=== PATIENT | female | born 1985 | race Caucasian/White ===

== ENCOUNTER 2025-05-16 16:57 | Outpatient (CLI) | payer BC, SELFPAY ==
--- OUTSIDE RECORDS SUMMARY | 2025-05-16 17:03 | XMS_ITS | Encounter Summary ---
Author Organization [facility] Address Counts include 234 beds at the [facility] [place] [address] Care Team Providers Care Division Merchandise Manager Name Role Phone None, Provider Primary Care Provider Unavaila ble Obi Ware MD Primary Care Provider [phone] Dionicio Thomas MD Primary Care Provider Encounter Details Date Type Department Care Team (Late st Contact Info) Description 05/05/2019 Abstract SFL CONVERSION [address] [place], [place] [id number] , Generic Conversion, Social History Tobacco Use Types Packs/Day Years Used Date Smoking Tobacco: Never Assessed Comments Unknown Sex and Gender Information Value Date Recorded Sex Assigned at Female 12/24/2024 9:40 AM DISTRIBUTION CENTER ASSOCIATE Legal Sex Female 5:52 PM DISTRIBUTION CENTER ASSOCIATE Gender Identity Not on file Sexual Orientation Not on file documented as of this encounter Plan of Treatment Not on file documented as of this encounter Visit Diagnoses Not on filedocumented in this encounter Care Teams Division Merchandise Manager Relationship Specialty Start Date End Date None, Provider, PCP - General 05/14/19 07/26/19 Obi Ware MD PCP - General FAMILY PRACTICE 07/27/19 05/21/20 Dionicio Thomas MD [address] [place] [address] PCP - General FAMILY PRACTICE 05/22/20 documented as of this encounter
--- OUTSIDE RECORDS SUMMARY | 2025-05-16 17:03 | XMS_ITS | Clinical Summary ---
Author Organization [facility] Address [address] [place] [address] Care Team Providers Care Service Writer Name Role Phone Dionicio Thomas MD Primary Care Provider [phone] Source Comments [facility] [facility],non-owned Affiliates and Associated Physician Practices is amultiple site organization consisting of ambulatory clinics and hospital sitesin [place], [place]. This disclosure is being madepursuant to the Care Everywhere program and may not contain all information available regarding this patient. Last updated 18.[facility] Allergies Active Allergy Reactions Criticality Noted Date Comments Augmentin 07/30/2016 Medications * Be aware that medications may not be up to date on this document. Alwaysverify current medications with the patient. gabapentin (NEURONTIN) 300 MG capsule Take 1 (one) capsule by mouth once daily as needed Active traMADol (ULTRAM) 50 MG tabletIndicatio ns:Moderate to Moderately Severe Pain,Osteoarthr itis Take 1 tablet by mouth 4 times daily Reasons: Moderate to Moderately Severe Pain, Joint Damage causing Pain and Loss of Function 30 tablet 9 Active Additional Information Patient not taking.Reason: Provider adjusted, Informant: Patient, Reported on 03/06/2025 cyclobenzaprine (FLEXERIL) 10 MG tablet Take 1 tablet by mouth 3 times daily 30 tablet 9 Active meloxicam (MOBIC) 15 MG tabletIndicatio ns:Osteoarthrit is Take 1 tablet by mouth once daily Reasons: Joint Damage causing Pain and Loss of Function 30 tablet 3 9 Active Additional Information Patient not taking.Reason: Not effective, Informant: Patient, Reported on 03/06/2025 methylPREDNISol one (MEDROL DOSEPAK) 4 MG tablet Take by mouth as directed 21 tablet 9 Active Additional Information Patient not taking.Reason: Provider adjusted, Informant: Patient, Reported on 03/06/2025 Slynd 4 MG TABS tablet Take 1 (one) tablet by mouth once daily Active Active Problems Problem Noted Date Diagnosed Date History of fusion of cervical spine 01/30/2019 Neuropathy, arm, left 01/30/2019 Encounters Date Type Department Care Team Description 03/06/2025 4:30 PM CDT - 03/06/2025 11:59 PM CDT Hospital Encounter [facility] [address] [place], [place] [id number] Earl Baker MD Discharge Disposition: Home or Self Care from Last 3 Months Social History Tobacco Use Types Packs/Day Years Used Date Smoking Tobacco: Former Cigarettes Q uit: 11/28/2017 Smokeless Tobacco: Never Tobacco Cessation:Ready to Q uit: No Alcohol Use Standard Drinks/Week Comments No 0 (1 standard drink = 0.6 oz pur e alcohol) Comments No Sex and Gender Information Value Date Recorded Sex Assigned at Not on file Legal Sex Female 4:48 PM CDT Gender Identity Not on file Sexual Orientation Not on file Last Filed Vital Signs Vital Sign Reading Time Taken Comments Blood Pressure 121/81 03/06/2025 6:04 PM CDT Pulse 78 03/06/2025 6:04 PM CDT Temperature 36.7 C (98 F) 03/06/2025 4:48 PM CDT Respiratory Rate 18 03/06/2025 6:04 PM CDT Oxygen Saturation 100% 03/06/2025 4:48 PM CDT Inhaled Oxygen Concentration - - Weight 63.5 kg (140 lb) 03/06/2025 4:48 PM CDT Height 149.9 cm (4' 11) 03/06/2025 4:48 PM CDT Body Mass Index 28.28 03/06/2025 4:48 PM CDT Plan of Treatment Health Maintenance Due Date Last Done Comments LIPID TESTING 1983 HIV SCREENING 1998 HEPATITIS C SCREENING 07/05/2001 DTAP/TDAP/TD VACCINES (1 - Tdap) 2002 HEPATITIS B VACCINE (1 of 3 - 19+ 3-dose series) 2002 COVID-19 VACCINE ( season) 2024 06/18/2022, 03/05/2021 DEPRESSION SCREENING 11/28/2024 INFLUENZA VACCINE (Season Ended) 2025 PAP SMEAR 10/17/2026 10/17/2023, 10/17/2023 MAMMOGRAM 10/26/2026 10/26/2024, 09/29, 10/17/2023, Additional history exists SCREENING FOR DIABETES 11/24/2027 , 11/24/2024, 04/22/2024, Additional history exists ZOSTER VACCINE (1 of 2) 2033 HIB VACCINE Aged Out No longer eligi ble based on patient's age to complete this topic HPV VACCINE Aged Out No longer eligi ble based on patient's age to complete this topic MENINGOCOCCAL (Group B) VACCINE SHARED DECISION-MAKING Aged Out No longer eligible based on patient's age to complete this topic MENINGOCOCCAL GROUPS A/C/Y/W VACCINE Aged Out No longer eligible based on patient's age to complete this topic PNEUMOCOCCAL VACCINE Aged Out No long er eligible based on patient's age to complete this topic Goals Goal Patient Goal Type Associated Problems Recent Progress Patient-Stated? Author Yearly PCP visit Lifestyle No White, Danyell A Have labs drawn Lifestyle No White, Danyell A Take recommended medication(s) Lifestyle No White, Danyell A Use safety retraint in car Lifestyle No White, Danyell A Complete Health Maintenance Screenings Lifestyle No White, Danyell A Procedures Procedure Name Priority Date/Time Associated Diagnosis Comments PAIN MANAGEMENT PROCEDURE TIME Routine 03/06/2025 5:58 PM CDT Cervical spondylosis without myelopathy COMPREHENSIVE METABOLIC PANEL STAT 08/20/2016 1:34 PM CDT from Last 3 Months or Most Recently Relevant to Health Maintenance Results * Pain Management Procedure Time (03/06/2025 5:58 PM CDT) Anatomical Region Laterality Modality X-Ray Angiograph y Narrative 03/06/2025 6:00 PM CDT Earl Baker MD 03/06/2025 6:00 PM Diagnostic bilateral C3, C4, C5 medial branch blocks. The patient was identified in the holding area and the operative permit was explained and signed. I have discussed with the patient the risks, benefits, side effects and complications of fluoroscopically guided cervical medial branch blocks. I have answered the patient's questions regarding the procedure and have given the patient the opportunity to refuse the procedure. I also have discussed alternative methods of treatment. The patient stated understanding of the procedure and wished to proceed with a fluoroscopically guided cervical medial branch blocks. The patient was taken to the fluoroscopic suite and placed on a C-arm table in the prone position with the appropriate monitors placed. A nurse was in attendance for the duration of the procedure to carefully monitor the patient. Please refer to the nursing record for vital sign documentation and for any doses of sedatives and medications. I was present and gave the order for any medications given to the patient. The cervical area was then prepped and draped in the usual sterile fashion. AP fluoroscopy was utilized to identify the lateral border of the facet pillar of C3 bilaterally. The skin and subcutaneous tissues overlying the target were anesthetized with 1 cc of 1 % Lidocaine via a 27 gauge needle. A 25 gauge 3.5 spinal needle was advanced toward the target midway between the superior and inferior articular processes of C4. Once seated in the tissues, lateral fluoroscopy was utilized in order to advance the needle to the middle of the facet pillar at the target level. Once satisfactory placement of the first needle was obtained, the procedure was repeated at the C4 and C5. Appropriate lateral positioning was confirmed with AP fluoroscopy prior to injection at all levels. After negative aspiration of blood or CSF, 0.5 cc of 0.25% Bupivacaine was injected at each level. All needles were removed intact. The patient tolerated the procedure well and there were no complications. Meaningful verbal contact was maintained with the patient throughout the procedure. The patient was taken to the recovery area. The patient remained in stable condition with no apparent complications. Post procedure instructions were given to the patient and a follow up appointment was confirmed. The patient was also discharged with information on how to reach the clinic or employment instructional associate physician at anytime for questions or complaints., Estimated blood loss during procedure 0 ml DOS 03/06/25 Earl Baker MD DIAGNOSTIC IMAGING ORDERA BLES Final Result * (ABNORMAL) COMPREHENSIVE METABOLIC PANEL (08/20/2016 1:34 PM T) [facility] Glucose 104 74 - 106 mg/dL 08/20/2016 2:04 PM [facility] Sodium 137 136 - 145 mmol/L 08/20/2016 2:04 PM [facility] Potassium 3.4(L) 3.5 - 5.1 mmol/L 08/20/2016 2:04 PM [facility] Chloride 105 98 - 107 mmol/L 08/20/2016 2:04 PM [facility] CO2 25 22 - 31 mmol/L 08/20/2016 2:04 PM [facility] Calcium 8.5 8.5 - 10.1 mg/dL 08/20/2016 2:04 PM [facility] Anion Gap 7 5 - 20 mmol/L 08/20/2016 2:04 PM [facility] BUN 8 7 - 21 mg/dL 08/20/2016 2:04 PM [facility] Creatinine 0.84 0.50 - 1.30 mg/dL 08/20/2016 2:04 PM [facility] Alkaline Phosphatase 63 38 - 126 U/L 08/20/2016 2:04 PM [facility] ALT 17 13 - 61 U/L 08/20/2016 2:04 PM [facility] AST 12 5 - 40 U/L 08/20/2016 2:04 PM [facility] Protein Total 7.8 6.4 - 8.2 gm/dL 08/20/2016 2:04 PM [facility] Albumin 4.1 3.4 - 5.0 gm/dL 08/20/2016 2:04 PM [facility] Bilirubin Total 0.5 0.2 - 1.0 mg/dL 08/20/2016 2:04 PM [facility] eGFR by MDRD >60 >60 mL/min/1.7 3m2 08/20/2016 2:04 PM [facility] eGFR by MDRD >60 >60 mL/min/1.7 3m2 08/20/2016 2:04 PM [facility] Blood BLOOD SPECIMEN / Unknown 08/20/2016 1:34 PM CDT 08/20/2016 1:38 PM CDT Bee Alexandre ABRASIVE BAND WINDER-INSURANCE ACCOUNT REPRESENTATIVE LAB - CHEMISTRY ORDERABLES Final Result [facility] [address] [place] [address] from Last 3 Months or Most Recently Relevant to Health Maintenance Insurance [employer] Care Teams Service Writer Relationship Specialty Start Date End Date Dionicio Thomas MD [address] [place] [address] PCP - General Family Medicine 07/22/21
--- OUTSIDE RECORDS SUMMARY | 2025-05-16 17:03 | XMS_ITS | Encounter Summary ---
Author Organization [facility] Address [address] [place] [address] Care Team Providers Care Clothes Drier Assembler Name Role Phone Dionicio Thomas MD Primary Care Provider Encounter Details Date Type Department Care Team (Late st Contact Info) Description 02/20/2025 [employer] Message Enc [facility] [address] [address] [address] PA [address] [place] [address] Visit Follow Up Social History Tobacco Use Types Packs/Day Years Used Date Smoking Tobacco: Former Cigarettes Q uit: 05/22/2017 Smokeless Tobacco: Never Alcohol Use Standard Drinks/Week Comments No 0 (1 standard drink = 0.6 oz pur e alcohol) AUDIT-C Answer Date Recorded Frequency of Alcohol Consumption Never 05/14/2019 Average Number of Drinks Not on file 019 Frequency of Binge Drinking Not on file 04/28 Comments No Sex and Gender Information Value Date Recorded Sex Assigned at Female 12/24/2024 9:40 AM DAIRY POWDER MIXER OPERATOR Legal Sex Female 5:52 PM DAIRY POWDER MIXER OPERATOR Gender Identity Not on file Sexual Orientation Not on file documented as of this encounter Plan of Treatment Not on file documented as of this encounter Visit Diagnoses Not on filedocumented in this encounter Care Teams Clothes Drier Assembler Relationship Specialty Start Date End Date Dionicio Thomas MD [address] [place] [id number] PCP - General FAMILY PRACTICE 05/22/20 documented as of this encounter
--- OUTSIDE RECORDS SUMMARY | 2025-05-16 17:03 | XMS_ITS | Clinical Summary ---
Author Organization [facility] Address [address] [place] [address] Phone Care Team Providers Care Sifting Operator Name Role Phone Dionicio Thomas MD Primary Care Provider Anton Emmanuel MD Unavailable Allergies Active Allergy Reactions Criticality Noted Date Comments Amoxicillin-Pot Clavulanate Hives 11/24/20 15 Medications naproxen (NAPROSYN) 500 MG Tablet Take 1 Tab by mouth 2 times daily as needed for Pain. 20 Tab 07/06/2017 Active tamsulosin (FLOMAX) 0.4 MG Capsule Take 1 Capsule by mouth daily. 04/26/2024 Active gabapentin (NEURONTIN) 300 MG Capsule TAKE 1 CAPSULE BY MOUTH EVERY DAY NEEDED FOR NERVE PAIN Active cyclobenzaprine (FLEXERIL) 10 MG Tablet 01/30/2019 Active oxyCODONE-aceta minophen (PERCOCET) 5-325 MG Tablet TAKE 1 TABLET BY MOUTH EVERY 4 HOURS FOR 3 DAYS NEEDED FOR PAIN 04/15/2024 Active Slynd 4 MG Tablet Take 1 Tablet by mouth daily. 04/26/2024 Active Social History Tobacco Use Types Packs/Day Years Used Date Smoking Tobacco: Every Day Cigarettes Alcohol Use Standard Drinks/Week Comments No 0 (1 standard drink = 0.6 oz pur e alcohol) Comments No Sex and Gender Information Value Date Recorded Sex Assigned at Not on file Legal Sex Female 10:13 PM CDT Gender Identity Not on file Sexual Orientation Not on file Last Filed Vital Signs Vital Sign Reading Time Taken Comments Blood Pressure 111/76 05/16/2024 8:01 AM CDT Pulse 85 05/16/2024 8:01 AM CDT Temperature 36.7 C (98 F) 04/22/2024 12:58 PM CDT Respiratory Rate 20 05/16/2024 8:01 AM CDT Oxygen Saturation 97% 05/16/2024 8:01 AM CDT Inhaled Oxygen Concentration - - Weight 55.3 kg (122 lb) 05/16/2024 8:01 AM CDT Height 148.6 cm (4' 10.5) 05/16/2024 8:01 AM CD T Body Mass Index 25.06 05/16/2024 8:01 AM CDT Plan of Treatment Health Maintenance Due Date Last Done Comments Hepatitis C Virus (HCV) Screening 1983 Human Papillomavirus (HPV) Immunization (1 - 3-dose series) 1998 Hepatitis B Immunization (1 of 3 - 19+ 3-dose series) 2002 Pneumococcal Immunization Combined (1 of 2 - PCV) 2002 HPV/Cotest 2013 SARS-COV-2 Immunization ( season) 2024 06/18/2022, 03/05/2021 Mammogram 10/17/2024 10/17/2023, 10/17/2023 Influenza Immunization (Seas on Ended) 2025 Cervical Cancer Screening (CCS) 10/17/2026 Pap Smear 10/17/2026 10/17/2023 Respiratory Syncytial Virus (RSV) Immunization (Adult) (1 - 1-dose 75+ series) 2058 DTaP/Tdap/Td Immunization Discontinued 03/26/2017 TdaP Immunization Completed 03/26/2017 Discussion re Starting/Frequency of Mammograms Completed 10/17/2023 Meningococcal Immunization (ACWY) Aged Out No longer eligible based on patient's age to complete this topic Rotavirus Immunization Aged Out No lo nger eligible based on patient's age to complete this topic Insurance [facility] Care Teams Sifting Operator Relationship Specialty Start Date End Date Dionicio Thomas MD [address] [place] [address] PCP - General Family Medicine 04/22/24 Anton Emmanuel MD [address] [phone] Consulting Physician Urology 05/16/24
--- OUTSIDE RECORDS SUMMARY | 2025-05-16 17:03 | XMS_ITS | Clinical Summary ---
Author Organization [facility] Address [address] [place] [address] Care Team Providers Care Gift Consultant Name Role Phone Unavailable Primary Care Provider Unavailabl e Social History Tobacco Use Types Packs/Day Years Used Date Smoking Tobacco: Never Assessed Comments Unknown Sex and Gender Information Value Date Recorded Sex Assigned at Not on file Legal Sex Female 11:35 AM TRAUMA DIRECTOR Gender Identity Not on file Sexual Orientation Not on file Plan of Treatment Upcoming Encounters Date Type Department Care Team (Late st Contact Info) Description 08/07/2025 1:15 PM CDT Appointment [facility] [address] [place] [address] Marcus Bullard MD [address] [facility] [address] [place] [address] Health Maintenance Due Date Last Done Comments DTAP/TDAP/TD VACCINES (1 - Tdap) 2002 HEPATITIS B VACCINES (1 of 3 - 19+ 3-dose series) 2002 HPV/Cotest (21-29) 2004 CERVICAL CANCER SCREENING 2013 HPV/Cotest (30-65) 2013 PAP SMEAR 2013 BREAST CANCER SCREENING 2023 INFLUENZA VACCINE (#1) 2024 HPV VACCINES Aged Out No longer eligi ble based on patient's age to complete this topic Insurance [employer] [facility]
--- OUTSIDE RECORDS SUMMARY | 2025-05-16 17:03 | XMS_ITS | Encounter Summary ---
Author Organization [facility] Address [address] [place] [address] Care Team Providers Care Organic Section Technical Lead Name Role Phone Dioincio Thomas MD Primary Care Provider Encounter Details Date Type Department Care Team (Late st Contact Info) Description 10/03/2024 [employer] Message Enc [facility] [address] [address] [address] PA [address] [place] [address] Visit Follow Up Social History Tobacco [...] Sex Assigned at Female 12/24/2024 9:40 AM DIRECTOR OF PHILANTHROPY Legal Sex Female 5:52 PM DIRECTOR OF PHILANTHROPY Gender Identity Not on file Sexual Orientation Not on file documented as of this encounter Plan of Treatment Not on file documented as of this encounter Visit Diagnoses Not on filedocumented in this encounter Care Teams Organic Section Technical Lead Relationship Specialty Start Date End Date Dionicio Thomas MD [address] [facility] [place] [phone] PCP - General FAMILY PRACTICE 05/22/20 documented as of this encounter
--- OUTSIDE RECORDS SUMMARY | 2025-05-16 17:04 | XMS_ITS | Data Portability ---
Author Organization [facility] [place] Address [address] [place] [place] [place] [address] Care Team Providers Care Psychiatric Clinical Nurse Specialist Name Role Phone SAMM ABEL Primary Care Provider Assessment Encounter Date Assessment Date Assessment LastModified by Organization Details LastModified Time 11/12/2024 11/12/2024 Annual gynecological exam performed. Patient will come back in a year unless there are new symptoms. [email or web address] Not available 11/12/2024 09:46:13 Plan of Treatment Reminders Order Date Submit Date Provider Last Modified By Organization Details Last Modified Time Details Appointments Robotic TLH 2024 07:30A Anu CUMMINS MD Not available Not available Not available SURG POST OP 2024 09:00A Anu CUMMINS MD Not available Not available Not available [facility] 2024 05:30P M SARAH CAPUTO NP Not available Not available Not available Lab test, urine 2024 025 [email or web address] [place] [facility] [address], [place], [address], 02/20/2025 10:38:48 Referral None recorded. Procedures None recorded. Surgeries robotic assisted hysterect maura w/bilater al salpingo- oophorect maura (SURG) 2024 025 [id number] [facility], [facility] [address], [place], [address], 05/03/2025 13:28:09 Imaging US, transvagi nal 2024 025 [email or web address] [place], [address], [place], [address], 02/22/2025 21:06:13 US, pelvis, complete 2024 025 [email or web address] [place], [place], [address], 03/22/2025 15:02:03 Medication Orders Slynd 4 mg (28) tablet 2023 024 [id number], [address], [place], [id number], 11/12/2024 11:17:40 Patient TargetsNo targets recorded. Patient InstructionsNo instructions recorded. Reason for Referral None Reported. Results Created Date Observation Date Name Description Value Unit Range Abnormal Flag Note LastModifiedBy Organization Detail LastModifiedTime 02/21/2002/20/2025 pregn helena test, urine HCG negati ve Not Available [place] [address], [place], [address], 02/20/2025 10:38:39 10/26/20 24 10/26/2024 MAMMO , scree lee, bilat eral No observ ation record ed. [facility] (Radiology) [address], [place], [address], 10/29/2024 10:24:47 02/21/20 25 02/13/2025 imagi ng/di agnos tic resul t No observ ation record ed. [email or web address] Not Available 2024 12:08:12 02/22/20 25 02/21/2025 US, trans vagin al No observ ation record ed. carol [place] [address], [place], [address], 02/21/2025 18:13:00 02/22/20 25 02/21/2025 US, trans vagin al No observ ation record ed. [email or web address] [address], [place], [address], 03/11/2025 13:54:10 Result Notes None recorded. Problems Name Problem SNOMED Code Status Onset Date Resolution Date Notes Provider Name and Address Organization Details Recorded Time Right lower quadrant pain 474852963 Completed 201605/13/2022 RLQ pain;Lakhwinder rded Elsewhere : No Locati on: [facility] So urce: EHR Chron ic: N Practic e ID: [id number] Bill able Time: 03:00:00 PM Elly Hearn [facility] 2 17:18:24 Superfic ial pain on intercou rse [id number] Completed 201605/13/2022 Superfici al (introita l) dyspareun ia;Record ed Elsewhere : No Locati on: [facility] So urce: EHR Chron ic: N Practic e ID: [id number] Bill able Time: 03:00:00 PM Elly Hearn [facility] 2 17:18:24 Pelvic and perineal pain [id number] Completed 201605/13/2022 Pelvic and perineal pain;Lakhwinder rded Elsewhere : No Locati on: [facility] So urce: EHR Chron ic: N Practic e ID: [id number] Bill able Time: 02:00:00 PM Elly Hearn [facility] 2 17:18:24 Finding of defecati on Completed 201605/13/2022 Constipat ion;Recor ded Elsewhere : No Locati on: [facility] So urce: EHR Chron ic: N Practic e ID: [id number] Bill able Time: 03:00:00 PM Elly Hearn [facility] 2 17:18:24 Sexual function painful Completed 201605/13/2022 Unspecifi ed dyspareun ia;Practi ce ID: [email or web address] Elly Hearn [facility], [facility] 2 17:18:24 Pain in female genitali a Completed 201605/13/2022 Dysmenorr hea, unspecifi ed;Practi ce ID: [email or web address] Elly Hearn [facility] 2 17:18:24 Problem Notes None recorded. Procedures Surgical History Date Name Laterality Status Provider Name and Address Organization Details Recorded Time 10/17/20 23 Date of Last Pap Smear completed [facility] 10/17/2023 15:01:54 06/01/20 17 Laparoscopy completed [facility] 07/18/2023 12:20:15 11/28/19 14 Orthopedic Surgery completed [facility] 07/18/2023 12:20:49 11/28/19 14 operation on cervix completed [facility] 07/18/2023 12:11:54 11/28/19 07 Breast Biopsy completed [facility] 07/18/2023 12:11:15 11/28/19 05 extraction of wisdom tooth completed [facility] 07/18/2023 12:11:29 Imaging Results None recorded. Procedure Notes None recorded. Medical Equipment None Reported. Allergies Allergen ID Allergen Name Allergen Category Reaction Reaction Severity Criticality Documentation Date Start Date Code Code System Note Provider Name and Address Organization Details Recorded Time Product containin g penicilli n (product) medicatio n Not available Not available Not available 05/14/2022 92015 8001 SNOMED Elly Hearn [facility] 2 10:21:09 Augmentin medicatio n Not available Not available Not available 05/14/2022 07586 2 RxNorm Elly Hearn [facility] 2 10:21:55 Medications Name Sig Start Date Stop Date Status Note LastModified by Organization Details LastModified Time celecoxib 200 mg capsule TAKE 2 CAPSULES FOR INITIAL LOADING DOSE, THEN 1 TWICE DAILY FOR SEVERE DYSMENOR CLARI PAIN. TAKE WITH FOOD, MAX OF 7 DAYS 06/15 completed Not Available Not Available Not Available cyclobenz aprine 10 mg tablet active Not Available Not Available No t Available clindamyc in HCl 300 mg capsule TAKE 1 CAPSULE BY MOUTH EVERY 6 HOURS 02/20 completed Not Available Not Available Not Available trazodone 50 mg tablet TAKE 1/2 TO 1 TABLET BY MOUTH AT BEDTIME active Not Available Not Available No t Available azithromy gordon 250 mg tablet TAKE 2 TABLETS BY MOUTH FOR 1 DAY THEN TAKE 1 TABLET BY MOUTH DAILY FOR 4 DAYS 07/18 completed Not Available Not Available Not Available ibuprofen 800 mg tablet TAKE 1 TABLET BY MOUTH EVERY 8 HOURS NEEDED FOR TOOTH PAIN 10/17 completed Not Available Not Available Not Available hydrocodo ne 5 mg-acetam inophen 325 mg tablet TAKE 1 TABLET BY MOUTH EVERY 6 HOURS NEEDED FOR PAIN 07/18 completed Not Available Not Available Not Available meloxicam 15 mg tablet 02/20 completed Not Available Not Available Not Available acetamino phen 300 mg-codein e 30 mg tablet TAKE 1 TABLET BY MOUTH EVERY 4 HOUR NEEDED FOR PAIN 10/17 completed Not Available Not Available Not Available sulfameth oxazole 800 mg-trimet hoprim 160 mg tablet TAKE 1 TABLET BY MOUTH TWICE DAILY 02/20 completed Not Available Not Available Not Available doxycycli ne monohydra te 100 mg tablet TAKE 1 TABLET BY MOUTH TWICE DAILY 11/12 completed Not Available Not Available Not Available tramadol 50 mg tablet TAKE 1 TABLET BY MOUTH EVERY 4 TO 6 HOURS NEEDED FOR DENTAL PAIN 02/20 completed Not Available Not Available Not Available ketorolac 10 mg tablet 11/12 completed Not Available Not Available Not Available meloxicam 7.5 mg tablet TAKE 1 TABLET BY MOUTH TWICE DAILY FOR 7 DAYS NEEDED 07/18 completed Not Available Not Available Not Available oxycodone -acetamin ophen 5 mg-325 mg tablet TAKE 1 TABLET BY MOUTH EVERY 4 HOURS FOR 3 DAYS NEEDED FOR PAIN 11/12 completed Not Available Not Available Not Available tamsulosi n 0.4 mg capsule TAKE 1 CAPSULE BY MOUTH DAILY 11/12 completed Not Available Not Available Not Available meclizine 25 mg tablet TAKE 1 TABLET BY MOUTH THREE TIMES DAILY NEEDED FOR DIZZINES S active Not Available Not Available No t Available doxycycli ne monohydra te 100 mg capsule TAKE 1 CAPSULE BY MOUTH TWICE DAILY 11/12 completed Not Available Not Available Not Available cephalexi n 500 mg capsule TAKE 1 CAPSULE BY MOUTH THREE TIMES DAILY UNTIL GONE 05/14 completed Not Available Not Available Not Available naproxen sodium 550 mg tablet May take 1 tablet BID x 7 days max WITH FOOD during menses only to avoid stomach upset/GI issues. 06/15 completed Not Available Not Available Not Available gabapenti n 300 mg capsule TAKE 1 CAPSULE BY MOUTH AT BEDTIME NEEDED FOR PAIN active Not Available Not Available No t Available mupirocin 2 % topical ointment APPLY TOPICALL Y TO THE AFFECTED AREA 2 TO 3 TIMES DAILY 02/20 completed Not Available Not Available Not Available diclofena c sodium 50 mg tablet,de layed release TAKE 1 TABLET BY MOUTH THREE TIMES DAILY NEEDED FOR PAIN 11/12 completed Not Available Not Available Not Available furosemid e 20 mg tablet TAKE 1/2 TO 1 TABLET BY MOUTH DAILY NEEDED FOR FOOT SWELLING 10/17 completed Not Available Not Available Not Available gabapenti n 100 mg capsule take 3 capsule by oral route 3 times every day 10/17 completed Prescrib ed Elsewher e: Yes Loca tion: [facility] odify By: [email or web address] E ncounter DateTime : 03/28/20 17 02:00:00 PM Not Available Not Available Not Available cefuroxim e axetil 500 mg tablet TAKE 1 TABLET BY MOUTH TWICE DAILY 02/20 completed Not Available Not Available Not Available methylpre dnisolone 4 mg tablets in a dose pack FOLLOW PACKAGE DIRECTIO NS 02/20 completed Not Available Not Available Not Available albuterol sulfate HFA 90 mcg/actua tion aerosol inhaler INHALE 1 PUFF BY MOUTH EVERY 4 TO 6 HOURS FOR 7 DAYS NEEDED FOR SHORTNES S OF BREATH OR WHEEZING active Not Available Not Available No t Available ondansetr on 4 mg disintegr ating tablet 02/20 completed Not Available Not Available Not Available Mononessa (28) 0.25 mg-35 mcg tablet take 1 tablet by oral route every day 05/14 completed Prescrib jeanne Daniels e: Yes Loca tion: [facility] Anu odkristen By: adam presley DateTime : 03/28/20 02:00:00 PM Not Available Not Available Not Available Slynd 4 mg (28) tablet TAKE 1 TABLET BY MOUTH EVERY DAY active Not Available Not Available No t Available Vitals Date Recorded Body height Body mass index (BMI) Body weight Systolic blood pressure Diastolic blood pressure Provider Name and Address Organization Details Last Updated DateTime 02/20/2025 148.59 cm 29.4 kg/m2 25095.71 g 120 mm[Hg] 83 mm[Hg] [facility] 5 09:57:07 Date Recorded Body height Body mass index (BMI) Body weight Systolic blood pressure Diastolic blood pressure Provider Name and Address Organization Details Last Updated DateTime 03/09/2025 148.59 cm 29.5 kg/m2 75906.58 g 108 mm[Hg] 75 mm[Hg] [facility] 5 09:26:13 Date Recorded Body height Body mass index (BMI) Body weight Systolic blood pressure Diastolic blood pressure Provider Name and Address Organization Details Last Updated DateTime 05/08/2025 148.59 cm 28.8 kg/m2 96857.93 g 113 mm[Hg] 77 mm[Hg] Vivi Lang [facility] 5 18:06:50 Date Recorded Body height Body mass index (BMI) Body weight Systolic blood pressure Diastolic blood pressure Provider Name and Address Organization Details Last Updated DateTime 11/12/2024 148.59 cm 30.9 kg/m2 31560.29 g 132 mm[Hg] 84 mm[Hg] [facility] 4 11:08:54 Social History Question Answer Notes LastModified by Organizat ion Details LastModified Time Tobacco Smoking Status Never Smoker Preeti pan, [facility] 07/18/2023 12:11:07 Do You Have An Advance Directive? No Information n ot available 05/14/2022 Are You Blind Or Do You Have Difficulty Seeing? No Information n ot available 05/14/2022 What Is Your Level Of Caffeine Consumption? Moderate Information not available 05/14/2022 How Much Tobacco Do You Chew? None Information not available 05/14/2022 In The 14 Days Before Symptom Onset, Have You Had Close Contact With A Laboratory-confirm ed COVID-19 While That Case Was Ill? No Information n ot available 05/14/2022 In The 14 Days Before Symptom Onset, Have You Had Close Contact With A Person Who Is Under Investigation For COVID-19 While That Person Was Ill? No Information not available 05/14/2022 Have You Been To An Area Known To Be High Risk For COVID-19? No Information not available 05/14/2022 Are You Deaf Or Do You Have Serious Difficulty Hearing? No Information not available 05/14/2022 What Type Of Diet Are You Following? REGULAR Information n ot available 05/14/2022 What Is The Highest Grade Or Level Of School You Have Completed Or The Highest Degree You Have Received? [id number] Information not available 05/14/2022 Are There Any Guns Present In Your Home? No Information not available 05/14/2022 Have You Ever Been Counseled For Unhealthy Alcohol Use? No [email or web address] Information not available 07/18/2023 Do You Use Protection During Sex? Always Information not available 05/14/2022 Do You Use Your Seat Belt Or Car Seat Routinely? Yes Information not available 05/14/2022 Do You Have Smoke And Carbon Monoxide Detectors In Your Home? Yes Information not available 05/14/2022 How Much Tobacco Do You Smoke? No Information not available 05/14/2022 Do You Use Sunscreen Routinely? Yes Information not available 05/14/2022 Have You Used IV Drugs? No Information not available 05/14/2022 Do You Have Difficulty Walking Or Climbing Stairs? No Information not available 07/18/2023 Sex: Unknown Functional Status Question Answer Note LastModified by Organizat ion Details LastModified Time Do you use any illicit or recreational drugs? No Information not available 05/14/2022 Do you or have you ever used any other forms of tobacco or nicotine? No [email or web address] Information not available 07/18/2023 What is your level of alcohol consumption? Occasional [email or web address] Information not available 07/18/2023 Are you able to walk? YESWOREST Information not available 05/14/2022 Are you able to care for yourself? 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 No [email or web address] Information not available 07/18/2023 What is your exercise level? Occasional Information not available 05/14/2022 Mental Status Question Answer Note LastModified by Organization D etails LastModified Time Do you feel stressed (tense, restless, nervous, or anxious, or unable to sleep at night)? [id number] Information not available 05/14/2022 Family History Relationship Description Onset Age of this Age Resolved Age Notes LastModified by Organization Details LastModified Time Maternal Grandmother Malignant neoplasm of lung Not available 2021 10:21:15 Maternal Grandmother Malignant tumor of breast Not available 2021 10:21:15 Mother Malignant neoplasm of lung Not available 2021 10:21:15 Mother Malignant tumor of cervix Not available 2021 10:21:15 Mother Malignant neoplasm of ovary 35 [email or web address] Not available 2024 10:06:37 Mother Malignant neoplasm of uterus 35 [email or web address] Not available 2024 10:06:33 Paternal Grandmother Malignant tumor of cervix Not available 2021 10:21:15 Medical History Condition Response Allergies (Food, seasonal, environmental ) Y Other Y Drug/Latex Allergies/Reactions N Blood Transfusion N Breast Cancer N Dermatologic Disorders N Lung Disease N Defects or Inherited Disease N Breast Problem Y Gestational Diabetes N Hematologic disorders N Anesthesia Complications N History of STI N Deep Vein Thrombosis N Polycystic ovary syndrome N Anxiety Disorder N Autoimmune disease N Arthritis Y Polyps N Infertility N Acid Reflux (GERD) N History of abnormal pap N Cancer N Varicosities N Stroke N Neurologic/Epilepsy Y Endometriosis N High Cholesterol N Fibromyalgia Y Headaches N Kidney Disease N Heart Problems N Thyroid Problems N Kidney or Bladder Problems N GI Problems N Eating Disorder N Anemia N Art (IVF or FET) N Psychiatric Illness N Ovarian Cancer N Diabetes N Pulmonary (TB, Asthma) N Hepatitis/Liver Disease N No Past Medical History N Eczema N Urinary Tract Infection N Abuse/Domestic Violence N Asthma Y Trauma/Violence N Depression/ depression N Heart Disease N Pre-Eclampsia N Hypertension N Osteoporosis N Thrombophilias N Gynecological History Statement/Question Response Flow Light Date of Last Mammogram Date of LMP 05/08/2025 N On BCP's at Conception? Y STIs/STDs N Was last menstrual period normal N HPV Vaccine N Duration of Flow (days) 2 Current Control Method BCPs Age at First Child 15 Date of control 06/28/2022 Are cycles usually normal N Frequency of Cycle (Q days) 26 Sexually Active? Y Menses Monthly N Age of first menstrual cycle 14 Date of Last Pap Smear 10/17/2023 Sexual Problems? N LMP Approximate Desired Control Method Hysterectom y N Obstetrics History GPAL:G 3 P 2 0 1 2 Type Value Full Term 2 Spontaneous 1 Living 2 Total 3 Past Encounters Encounter ID Performer Location Encounter Start Date Encounter Closed Date Diagnosis/Indication Diagnosis SNOMED-CT Code Diagnosis ICD10 Code Diagnosis Note [id number] Margaret Collazo [facility] [address] [address] 05/14/2022 09:52:33 05/14/2022 11:52:33 Pain in pelvis 31575197 R10.2 Today we agreed to update TVUS and f/u to discuss.Co nsider period regulation which supports anovulatio n to help defer opportunit ies for ovarian cysts to occur.Has failed Depo/BCP trials in the past mainly felt it effected her mood.Trial of Celebrex for menstrual pain trial. May couple with Tylenol as well.Discu ssed premedicat ing prior to onset of her cycle as well.Swabs sent Patient is to contact office or go to nearest ED/Urgent care if fever >/= 100.1, pain, excessive bleeding, unusual drainage or swelling in area of concern; or experienci ng worsening sx's or new onset of concerning sx's. Understand ing verbalized . All questions answered to patient satisfacti on. Time spent in visit is a total of 30 mins with at least 50% of visit consisting of counseling and review of plan of care. [id number] Tani Cummins MD [place] [address],[place] [address] 06/02/2022 17:56:56 06/02/2022 18:41:18 Pain in pelvis 11930371 R10.2 [id number] [facility] [address],[place] [address] 06/15/2022 16:15:17 06/15/2022 16:59:40 Cyst of ovary 17864143 N83.209 US reviewedOv yair cyst approx 2cmShe feels like this has ruptured.H ad more dysmenorrh ea with this last menstrual cycle than she normally does; even though most cycles still with significan t dysmenorrh ea.We talked about using BC for ovulatory suppressio n; she opts to pursue SLYND which will also help more with Dysmenorrh ea with her cycles.She is sensitive to BC but is willing to try this POP.She is overall feeling better & sx's are resolving pain is 3 out of 10 now & this is only very randomly.A ble to function ADL's SLYND samples givenRTO x 2.5mos med check Time spent in visit is a total of 15 mins with at least 50% of visit consisting of counseling and review of plan of care. [id number] JEN Rich [place] [address],[place] [address] 07/18/2023 11:50:38 07/18/2023 12:43:25 Gynecologic examination 61776936 Z01.419 Suggested Calcium with Vitamin D 1200-1500m g daily. Patient advised to get an annual flu shot in the fall and she could obtain at [facility] or [facility] take care clinic. Also to obtain TDap vaccinatio n if you have not had one in the last 10 years. Recommend yearly mammograms . Encouraged monthly self breast exams. Encourage safe sexual practices, to use condoms and limit partners if not already in a monogamous relationsh ip. Engage in daily exercise of low impact aerobic exercise 45-60 minutes 4-5 times weekly. Avoid tobacco and illicit drugs as well as using moderation with alcohol intake less than 1-2 8 oz beverages daily. This lifestyle behavior pattern will lead to less health conditions and longer life span. If BMI greater than 25 weight watchers or dietary consult advised. All questions have been answered. Patient appears to understand informatio n, but if you have any questions please call or respond to this email. [facility] - torrie with this methodR/B/ A reviewedre fills sent x 12 monthshx of abnormal pap 20+ years ago - all normals sincepap updated todaySTI testing declinedUT D with PCP for routine labs - has appointmen t with PCP todayleft axillary lump noted. Due for primary mammogram. Diagnostic mammogram + axillary u/s order given to patient, encouraged to schedule - precaution s reviewed (notify the office with s/sx's of infection) mother with ovarian CA diagnosed at 34, maternal grandmothe r with BC (unsure age of diagnosis) . Genetic testing discussed, hangout given. Axillary lymphadenopathy 780765054 R59.0 Contracept ion care management 894740925 Z30.9 [id number] JEN Rich [place] [address] [address] 10/17/2023 14:46:01 10/17/2023 15:09:34 Screening for malignant neoplasm of cervix 269699184 Z12.4 repeat pap collected No charge visit [id number] Tani Cummins MD [place] [address] [address] 11/12/2024 11:00:27 11/12/2024 11:24:45 Gynecologic examination 06471355 Z01.419 Annual gynecologi stefano exam performed. Patient will come back in a year unless there are new symptoms. Suggest Calcium with Vitamin D if not eating in diet. Patient advised to get annual flu shot. Recommend yearly physicals and perform monthly breast exams. Genetic testing is available for patients with family history of cancer. Engage in safe sexual practices, use condoms. Encouraged to have daily exercise. Avoid tobacco and illicit drugs, moderation of alcohol. If BMI greater than 25 dietary consult advised. If you have any questions please call or email. mammogram- UTD (09/2024 - WNL per pt) colon cancer screening - n/a DEXA scan- n/a Pap smear- UTD (2022 - WNL), will repeat per ASCCP guidelines laboratory evaluation - declined STI testing - declined Contracept ion care management 057720821 Z30.9 Happy with BC pills. Risks/bene fits reviewed.R efills sent x one year. [id number] Tani Cummins MD [place] [address],[facility] [place] [address] 02/20/2025 09:32:23 02/20/2025 10:45:01 Pain in pelvis 45443348 R10.2 Recommende d pelvic ultrasound for further evaluation of uterus and ovaries, especially since patient reports she is positive for BRCA 1/2.Follow -up scheduled with MD to discuss results and potential treatment options.Octavio zheng declines other BC methods to help better regulate cycles, patient satisfied with Slynd overall. Cyst of left ovary [id number] 8624931 N83.202 Family his tory of malignant neoplasm of uterus 224004922 Z80.49 Family his tory of malignant neoplasm of ovary in first degree relative 1963960058 106 Z80.41 [id number] Tani Cummins MD [place] [address] [address] 02/21/2025 17:30:47 02/22/2025 08:52:35 Imaging result abnormal 029393061 R93.89 [id number] Tani Cummins MD [place] [address] [address] 03/09/2025 09:21:25 03/11/2025 11:40:22 BRCA1 gene mutation detected 143433950 Z15.01 This patient is a 39-year-ol d female with 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 She would like prophylact ic hysterecto my with a salpingo-o ophorectom y. We talked about the risks, benefits, and alternativ es to this approach. We talked about the surgery in detail. Talked about complicati ons. We talked about the approach. We talked about robotic flood rgery. The patient understand s the procedure. The procedure was described to the patient in great detail. the patient also understand s the risks. The risks were also explained in detail. She understand s that injuries May occur during surgery. She understand s these injuries can result in hospitaliz ation, more surgery, and severe illness. She understand s there is risk of hemorrhage and infection. I spent over 30 minutes on her care in total. We agreed to proceed with robotic assisted hysterecto my bilateral salpingo-o ophorectom y. [id number] Tani Cummins MD [place] [address] [address] 05/08/2025 17:41:46 05/09/2025 09:03:11 Breast cancer genetic marker of susceptibility detected [id number] Z15.01 Z15.09 this patient is a 39-year-ol d female with BRCA 1 gene mutation, pelvic pain, menorrhagi a. We have agreed to perform robotic assisted hysterecto my and bilateral salpingo-o ophorectom y. She understand s risks, benefits, and alternativ es. She has completed the informed consent process and is ready to proceed. Health Concerns Section Related Observation LastModified by Organization Detai ls LastModified Time None Recorded Concern Status LastModified by Organization Details LastModified Time None Recorded Advance Directives Directive N: Payers Insurance Date Sequence Insurance Name Policy Number Policy Sands Covered Member ID Sands Member ID Guarantor Name 05/16/2025 1 [facility] [id number] [employer] [id number] [place] 05/16/2025 1 [facility] [id number] [employer] [id number] [place] Notes Date Note Type Note Provider Name and Address Organization Details Recorded Time 11/12/2024 text/html Annual GYNReport ed bypatient.Menstrual cycle:Normal menses Urinary symptoms:No hematuria; No incontinence Vulva:No genital lesion Vagina:Normal vaginal discharge Breast:No breast pain; No breast lump; No nipple discharge Current Contraception:Satisf ied with current contraception; Oral contraceptives Sexual complaints:No sexual complaints; No pain during intercourse; Normal libido Menopausal Symptoms:No menopausal symptoms; Normal vaginal lubrication Psychological symptoms:No depression; No anxiety; No PMDD Patient presents for annual well woman exam. Patient denies concerns today. SARAH CAPUTO NP [address], [place], [address], [facility] 11/12/2024 11:23:49 02/20/2025 text/html Patient here to discuss recent MRI results for bilateral hip pain that incidentally showed a 2 cm left ovarian cyst and a small T2 hypointense lesion in the anterior aspect of uterine body measuring 8 mm (possible fibroid). Patient currently taking Slynd and reports that she has light intermittent spotting throughout the month with mild cramping. Patient states that periods were much heavier and frequent before starting Slynd and denies current menstrual concerns. Denies GI/ sx. Denies vaginal symptoms.Patient reports history of ovarian cysts in the past. Patient reports that mother was diagnosed with ovarian and uterine cancer at age 35, and subsequently had total hysterectomy.Patient states that she is positive for the BRCA 1 and 2 gene - confirmed around 2013 per pt. SARAH CAPUTO NP [address], [place], [address], [facility] 02/20/2025 10:38:52 03/09/2025 text/html This patient is a 39-year-old female with 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 She would like prophylactic hysterectomy with a salpingo-oophorectom y. We talked about the risks, benefits, and alternatives to this approach. We talked about the surgery in detail. Talked about complications. We talked about the approach. We talked about robotic flood rgery. The patient understands the procedure. The procedure was described to the patient in great detail. the patient also understands the risks. The risks were also explained in detail. She understands that injuries May occur during surgery. She understands these injuries can result in hospitalization, more surgery, and severe illness. She understands there is risk of hemorrhage and infection. I spent over 30 minutes on her care in total. We agreed to proceed with robotic assisted hysterectomy bilateral salpingo-oophorectom y. Tani Cummins MD [address], [place], [address], [facility] 03/10/2025 21:19:19 05/08/2025 text/html this patient is a 39-year-old female with BRCA 1 gene mutation, pelvic pain, menorrhagia. We have agreed to perform robotic assisted hysterectomy and bilateral salpingo-oophorectom y. She understands risks, benefits, and alternatives. She has completed the informed consent process and is ready to proceed. The patient understands the procedure. The procedure was described to the patient in great detail. the patient also understands the risks. The risks were also explained in detail. She understands that injuries May occur during surgery. She understands these injuries can result in hospitalization, more surgery, and severe illness. She understands there is risk of hemorrhage and infection. Tani Cummins MD [address], [place], [address], [facility] 05/08/2025 19:21:55 OBGyn Episode Ob Episode Information Episode Created Date Number of Fetuses Patient Bloodtype Patient rh Status Prepregnancy Weight lbs Domestic Partner Domestic Partner Phone Father Name Recreation Attendant Supervisor Status 05/14/20 22 1 CLOSED Fetus Data First Name Last Name Admitted to NICU Weight (g) Sex Living Outcome Pediatric Complications Fetus ID Race Codes Race Delivery Type 3855.53 2 M Full Term [id number] Vaginal Delivery Rei Calculation Initial Rei Date Initial Exam Date Initial Exam Provider Initial Ultrasound Date Last Menstrual Period Date Ultra Sound Weeks Gestation 0 Eighteen To Twenty Week Rei Update Ultra Sound Date Fundal Height At Umbil Quickening Date Ultra Sound Latest Weeks Gestation Final Rei Confirmed By Final Rei Confirmed Date Final Rei Date Ultra Sound Latest Days Gestation 0 0 Menstrual History Last Menstrual Date Menses Monthly On Bcp Conception Prior Menses Frequency Hcg Plus Date Menarche Onset Age Delivery Information Delivery Date Delivery Type Labor Anesthesia Weeks Gestation Incision Type Labor Labor Length Hrs Delivered By Post Complications Tubal Sterilization Discharge Date Comments 8 41 Discharge Information Feeding Method Contraceptive Method Maternal HG B and HCT Levels Ob Episode Information Episode Created Date Number of Fetuses Patient Bloodtype Patient rh Status Prepregnancy Weight lbs Domestic Partner Domestic Partner Phone Father Name Recreation Attendant Supervisor Status 05/14/20 22 1 CLOSED Fetus Data First Name Last Name Admitted to NICU Weight (g) Sex Living Outcome Pediatric Complications Fetus ID Race Codes Race Delivery Type 2692.97 5704 F Full Term [id number] Vaginal Delivery Rei Calculation Initial Rei Date Initial Exam Date Initial Exam Provider Initial Ultrasound Date Last Menstrual Period Date Ultra Sound Weeks Gestation 0 Eighteen To Twenty Week Rei Update Ultra Sound Date Fundal Height At Umbil Quickening Date Ultra Sound Latest Weeks Gestation Final Rei Confirmed By Final Rei Confirmed Date Final Rei Date Ultra Sound Latest Days Gestation 0 0 Menstrual History Last Menstrual Date Menses Monthly On Bcp Conception Prior Menses Frequency Hcg Plus Date Menarche Onset Age Delivery Information Delivery Date Delivery Type Labor Anesthesia Weeks Gestation Incision Type Labor Labor Length Hrs Delivered By Post Complications Tubal Sterilization Discharge Date Comments 1 42 Discharge Information Feeding Method Contraceptive Method Maternal HG B and HCT Levels Ob Episode Information Episode Created Date Number of Fetuses Patient Bloodtype Patient rh Status Prepregnancy Weight lbs Domestic Partner Domestic Partner Phone Father Name Recreation Attendant Supervisor Status 07/18/20 23 1 CLOSED Fetus Data First Name Last Name Admitted to NICU Weight (g) Sex Living Outcome Pediatric Complications Fetus ID Race Codes Race Delivery Type , Spontane ous [id number] Rei Calculation Initial Rei Date Initial Exam Date Initial Exam Provider Initial Ultrasound Date Last Menstrual Period Date Ultra Sound Weeks Gestation 0 Eighteen To Twenty Week Rei Update Ultra Sound Date Fundal Height At Umbil Quickening Date Ultra Sound Latest Weeks Gestation Final Rei Confirmed By Final Rei Confirmed Date Final Rei Date Ultra Sound Latest Days Gestation 0 0 Menstrual History Last Menstrual Date Menses Monthly On Bcp Conception Prior Menses Frequency Hcg Plus Date Menarche Onset Age Delivery Information Delivery Date Delivery Type Labor Anesthesia Weeks Gestation Incision Type Labor Labor Length Hrs Delivered By Post Complications Tubal Sterilization Discharge Date Comments 6 Discharge Information Feeding Method Contraceptive Method Maternal HG B and HCT Levels
== END 2025-05-16 16:58 | disposition home or self-care (01) ==
LOC: ANHLAB 17:01
PROVIDERS: PCP Family Medicine; Visit Provider Obstetrics & Gynecology
DX: Z01.812 Encounter for preprocedural laboratory examination (principal); N92.6 Irregular menstruation, unspecified; R10.2 Pelvic and perineal pain
CPT/HCPCS: 36415; 86850; 86900; 86901

== ENCOUNTER 2025-05-17 00:40 | Day surgery (SDC) | payer BC, SELFPAY ==
[2025-05-14 14:47] VITALS: BMI 28.6
--- NOTE | 2025-05-14 14:58 | PC.NURSE ---
Report to the Outpatient Waiting Room, entrance under the green pavilion located off [facility], at time _0600_ on date _[id number]_. Planned Procedure Time: _0730_.? Time changes happen often and if your time is changed the preop area will call you the afternoon before. - You and your visitor will be asked to self-screen and do not enter if you have any COVID symptoms. Please call surgeon if you need to reschedule. - A mask is optional within the hospital at this time. Patients may have clear liquids (water, carbonated beverages, clear teas, apple juice) until 3 hours prior to surgery with a maximum of 20 ounces. - No food from midnight until time of surgery and no smoking, or chewing tobacco (or any form of nicotine). No chewing gum, candy or mints. Take only the following medications with a SIP of water on the morning of surgery: ___None DO NOT STOP ANY OF YOUR OTHER PRESCRIPTION MEDICATIONS PRIOR TO SURGERY EXCEPT THE FOLLOWING Hold all vitamins and supplements for 3 days per anesthesiologist. Medications to discontinue per physician patient is stopping semaglutide with last dose taken 04-02-2025. Also stopping BC pill 2 days before surgeryr as instructed per Dr Ireland. Date to take last dose Please no make-up, nail italian, hairspray, perfume, deodorant, or body powder the day of surgery.? No jewelry (including any body piercings) or valuables the day of surgery, leave them at home.? Please take a shower or bath the night before, or the morning of, surgery with an antibacterial soap.? Wear comfortable, loose fitting clothing.? - Jewelry must be removed prior to entering the operating room.? Rings and piercings that are not removed may be cut off. - The hospital will not accept responsibility for valuables.? - Please leave all valuables, including medications, at home the day of surgery. If you are going home after surgery, a licensed food mobile driver must drive you home.? - NO public transportation without another adult if you receive anesthesia. - We recommend that an adult stay with you for 24 hours following discharge. - We also recommend that you do not drive, make important decision, drink alcoholic beverages, or take any drugs that were not prescribed by your health care provider for at least 24 hours after your discharge time. Follow any additional instructions given to you from your surgeon. Telephone instructions given to __Loni___and asked if any additional questions and then verbalized understanding. Patient advised to call surgeon office or pre surgery nurse liaison [phone] if any additional questions.
[2025-05-17] VITALS (10 sets, daily range): BP systolic 90–118; BP diastolic 49–77; PULSE 51–97; RESP 8–18; TEMP 36.1–36.9; O2SAT 99–100; BMI 28.6
--- OUTSIDE RECORDS SUMMARY | 2025-05-17 00:42 | XMS_ITS | Clinical Summary ---
Author Organization [facility] Address [address] [place] [address] Care Team Providers Care Poacher Wringer Operator Name Role Phone Dionicio Thomas MD Primary Care Provider Source Comments [facility],non-owned Affiliates and Associated Physician Practices is amultiple site organization consisting of ambulatory clinics and hospital sitesin [place] and [place]. This disclosure is being madepursuant to the Care Everywhere program and may not contain all information available regarding this patient. Last updated 18.[facility] Allergies Active Allergy Reactions Criticality Noted Date [...] - 03/06/2025 11:59 PM CDT Hospital Encounter [facility] [address] [place], [place] [id number] Earl Baker MD Discharge Disposition: Home or [...] on how to reach the clinic or crime prevention worker physician at anytime for questions or complaints., Estimated blood loss during procedure 0 ml DOS 03/06/25 Earl Baker MD DIAGNOSTIC IMAGING ORDERA BLES Final Result * (ABNORMAL) COMPREHENSIVE METABOLIC PANEL (08/20/2016 1:34 PM T) [facility] Glucose 104 74 - 106 mg/dL 08/20/2016 2:04 PM [facility] Sodium 137 136 - 145 mmol/L 08/20/2016 2:04 PM [facility] Potassium 3.4(L) 3.5 - 5.1 mmol/L 08/20/2016 2:04 PM [facility] Chloride 105 98 - 107 mmol/L 08/20/2016 2:04 PM [facility] CO2 25 22 - 31 mmol/L 08/20/2016 2:04 PM [facility] Calcium 8.5 8.5 - 10.1 mg/dL 08/20/2016 2:04 PM [facility] Anion Gap 7 5 - 20 mmol/L 08/20/2016 2:04 PM [facility] BUN 8 7 - 21 mg/dL 08/20/2016 2:04 PM [facility] Creatinine 0.84 0.50 - 1.30 mg/dL 08/20/2016 2:04 PM [facility] Alkaline Phosphatase 63 38 - 126 U/L 08/20/2016 2:04 PM [facility] ALT 17 13 - 61 U/L 08/20/2016 2:04 PM [facility] AST 12 5 - 40 U/L 08/20/2016 2:04 PM [facility] Protein Total 7.8 6.4 - 8.2 gm/dL 08/20/2016 2:04 PM [facility] Albumin 4.1 3.4 - 5.0 gm/dL 08/20/2016 2:04 PM [facility] Bilirubin Total 0.5 0.2 - 1.0 mg/dL 08/20/2016 2:04 PM [facility] eGFR by MDRD >60 >60 mL/min/1.7 3m2 08/20/2016 2:04 PM [facility] eGFR by MDRD >60 >60 mL/min/1.7 3m2 08/20/2016 2:04 PM [facility] Blood BLOOD SPECIMEN / Unknown 08/20/2016 1:34 PM CDT 08/20/2016 1:38 PM CDT [facility] [facility] [facility] TECHNICIAN LAB - CHEMISTRY ORDERABLES Final Result [facility] [address] [place] [address] from Last 3 Months or Most Recently Relevant to Health Maintenance Insurance [employer] Care Teams Poacher Wringer Operator Relationship Specialty Start Date End Date Dionicio Thomas MD [address] [place] [address] PCP - General Family Medicine 07/22/21
--- OUTSIDE RECORDS SUMMARY | 2025-05-17 00:42 | XMS_ITS | Clinical Summary ---
Author Organization [facility] Address [facility] [place] [address] Care Team Providers Care Irrigation Supervisor Name Role Phone Dionicio Thomas MD Primary Care Provider Allergies Active Allergy Reactions Criticality Noted Date Comments Amoxicillin-Pot Clavulanate Hives,Unknown 05/14 Penicillins Unknown 10/03/2024 Medications Drospirenone (SLYND OR) Active cyclobenzaprine (FLEXERIL) 10 MG tablet 09/28/2023 Active gabapentin (NEURONTIN) 300 MG capsule Take 1 capsule (300 mg total) by mouth daily as needed. Active meclizine (ANTIVERT) 25 MG tablet Take 1 tablet (25 mg total) by mouth. Active traZODone (DESYREL) 50 MG tablet Take 0.5-1 tablets (25-50 mg total) by mouth nightly at bedtime. 11/13/2024 Active Active Problems Problem Noted Date Diagnosed Date Primary osteoarthritis of right hip 11/19/2024 Primary osteoarthritis of left hip 11/19/2024 Patellofemoral pain syndrome of both knees 10/03 Femoroacetabular impingement of both hips 2023 Biceps tendonitis on left 06/05/2020 Impingement syndrome of left shoulder 05/22/2020 Encounters Date Type Department Care Team Description 02/20/2025 11:00 AM CDT Office Visit [address] [address] [facility] [place] Hip Pain (BILATERAL) 02/20/2025 MyChart Message Enc [address] [address] [facility] [place] Visit Follow Up 02/20/2025 Travel from Last 3 Months Family History Medical History Relation Comments No Known Problems Brother Hypertension Father Cancer Maternal Grandfather Cancer Maternal Grandmother Cancer Mother No Known Problems Paternal Grandfather Cancer Paternal Grandmother No Known Problems Sister Relation Status Comments Brother Alive Father Alive Maternal Grandfather Maternal Grandmother Mother Paternal Grandfather Paternal Grandmother Sister Alive Social History Tobacco Use Types Packs/Day Years Used Date Smoking Tobacco: Former Cigarettes Q uit: 05/22/2017 Smokeless Tobacco: Never Tobacco Cessation:Counseling Given: Not Answered Alcohol Use Standard Drinks/Week Comments No 0 (1 standard drink = 0.6 oz pur e alcohol) AUDIT-C Answer Date Recorded Frequency of Alcohol Consumption Never 05/14/2019 Average Number of Drinks Not on file 019 Frequency of Binge Drinking Not on file 04/28 Comments No Sex and Gender Information Value Date Recorded Sex Assigned at Female 12/24/2024 9:40 AM ORDER FULFILLMENT SPECIALIST Legal Sex Female 5:52 PM ORDER FULFILLMENT SPECIALIST Gender Identity Not on file Sexual Orientation Not on file Last Filed Vital Signs Vital Sign Reading Time Taken Comments Blood Pressure 120/80 11/24/2024 6:50 AM ORDER FULFILLMENT SPECIALIST Pulse 108 11/24/2024 3:53 AM ORDER FULFILLMENT SPECIALIST Temperature 36.9 C (98.5 F) 11/24/2024 3:53 AM ORDER FULFILLMENT SPECIALIST Respiratory Rate 17 11/24/2024 3:53 AM ORDER FULFILLMENT SPECIALIST Oxygen Saturation 97% 11/24/2024 6:50 AM ORDER FULFILLMENT SPECIALIST Inhaled Oxygen Concentration - - Weight 65.8 kg (145 lb) 02/20/2025 10:57 AM CDT Height 148.6 cm (4' 10.5) 02/20/2025 10:57 AM C DT Body Mass Index 29.79 02/20/2025 10:57 AM CDT Plan of Treatment Health Maintenance Due Date Last Done Comments Annual Physical 1986 Hepatitis C 2001 Hepatitis B Vaccines (1 of 19+ 3-dose series) 2002 COVID-19 Vaccine (2023-2 5 season) 2024 06/18/2022, 03/05/2021 Cervical Cancer Screening Pa p Smear (Age 30 to 64) Every 3 Years 10/17/2026 10/17/2023, 05/14/2022 Mammogram Screening 10/26/2026 10/26/2024, 10/17/2023 DTaP, Tdap and Td Vaccines ( 2 - Td or Tdap) 03/26/2027 03/26/2017 Cervical Cancer Screening Pa p with HPV Testing (Age 30 to 64) Every 5 Years 10/17/2028 10/17/2023, 05/14/2022 Cervical Cancer Screening wi th HPV 10/17/2028 HPV Vaccines Aged Out No longer eligi ble based on patient's age to complete this topic Meningococcal B Vaccine Aged Out No l onger eligible based on patient's age to complete this topic Meningococcal Vaccine Aged Out No estrella edwin eligible based on patient's age to complete this topic Pneumococcal Vaccine: Pediatrics (0 to 5 Years) and At-Risk Patients (6 to 49 Years) Aged Out No longer eligible b ased on patient's age to complete this topic RSV Immunizations Under 20 Months Aged Out No longer eligible b ased on patient's age to complete this topic Procedures Procedure Name Priority Date/Time Associated Diagnosis Comments MG SCREENING W ROBERTA KEREN DIGI Routine 10/26/2024 10:49 AM ORDER FULFILLMENT SPECIALIST Visit for screening mammogram from Last 3 Months or Most Recently Relevant to Health Maintenance Results * MG SCREENING W ROBERTA KEREN DIGI (10/26/2024 10:49 AM ORDER FULFILLMENT SPECIALIST) Anatomical Region Laterality Modality Breast Bilateral Mammography 10/26/2024 11:2 0 AM ORDER FULFILLMENT SPECIALIST Impressions 10/26/2024 11:20 AM ORDER FULFILLMENT SPECIALIST IMPRESSION: No suspicious change since 10/17/2023. Recommendation: 1: Routine Screening Bilateral in 1 Year Assessment: ACR BI-RADS 2 - BENIGN FINDING(S) Ordered By: TANI CUMMINS Interpreted By: Nehemiah Bonilla MD, 10/26/2024 11:20 AM Narrative 10/26/2024 11:20 AM ORDER FULFILLMENT SPECIALIST [address] [place] [address] Examination: Digital screening mammogram with CAD. Clinical history: Asymptomatic patient presents for routine screening. Comparison: 10/17/2023. Technique: Bilateral digital mammograms. The exam was interpreted with the use of a computer-aided detection (CAD) system. Additional 3-D tomosynthesis images were acquired. Tissue density: The breast tissue is heterogeneously dense. Findings: The breast tissue is heterogeneously dense. The dense tissue may obscure some lesions mammographically. Benign-appearing calcification noted. No suspicious mass, microcalcification or area of architectural distortion can be identified. From a mammographic standpoint, routine followup in one year would seem adequate. us Tani Cummins MD MAMMO Final Resu lt from Last 3 Months or Most Recently Relevant to Health Maintenance Insurance [facility] Care Teams Irrigation Supervisor Relationship Specialty Start Date End Date Dionicio Thomas MD [address] [place] [address] [place] [address] PCP - General FAMILY PRACTICE 05/22/20
--- OUTSIDE RECORDS SUMMARY | 2025-05-17 00:42 | XMS_ITS | Clinical Summary ---
Author Organization [facility] Address [address] [place] [address] Phone Care Team Providers Care Rn Cardiovascular Icu Name Role Phone Dionicio Thomas MD Primary Care Provider [phone] Anton Emmanuel MD Unavailable Allergies Active Allergy [...] patient's age to complete this topic Insurance [facility] Care Teams Rn Cardiovascular Icu Relationship Specialty Start Date End Date Dionicio Thomas MD [address] [place] [address] PCP - General Family Medicine 04/22/24 Anton Emmanuel MD [address] [address] Consulting Physician Urology 05/16/24
--- OUTSIDE RECORDS SUMMARY | 2025-05-17 00:42 | XMS_ITS | Clinical Summary ---
Author Organization [facility] Address [address] [place] [address] Care Team Providers Care Brine Maker Name Role Phone Unavailable Primary Care Provider Unavailabl e Social History Tobacco Use Types Packs/Day Years Used Date Smoking Tobacco: Never Assessed Comments Unknown Sex and Gender Information Value Date Recorded Sex Assigned at Not on file Legal Sex Female 11:35 AM RN LONG TERM CARE Gender Identity Not on file Sexual Orientation Not on file Plan of Treatment Upcoming Encounters Date Type Department Care Team (Late st Contact Info) Description 08/07/2025 1:15 PM CDT Appointment [facility] [address] [place] [address] Marcus [facility]ard [facility] [address] [facility] [address] [place] [address] Health Maintenance Due Date Last [...] to complete this topic Insurance [employer] [facility]
--- OUTSIDE RECORDS SUMMARY | 2025-05-17 00:42 | XMS_ITS | Encounter Summary ---
Author Organization [facility] Address [address] [place] [address] Care Team Providers Care Online Education Manager Name Role Phone Dionicio Thomas MD Primary Care Provider Encounter Details Date Type Department Care Team (Late st Contact Info) Description 02/20/2025 Pen[place] Message Enc [facility] [address] [address] [facility] [place] [address] [place] [address] Visit Follow Up Social History Tobacco [...] Sex Assigned at Female 12/24/2024 9:[address] INTERPRETER Legal Sex Female 5:[address] INTERPRETER Gender Identity Not on file Sexual Orientation Not on file documented as of this encounter Plan of Treatment Not on file documented as of this encounter Visit Diagnoses Not on filedocumented in this encounter Care Teams Online Education Manager Relationship Specialty Start Date End Date Dionicio Thomas MD [address] [facility] [place] [id number] PCP - General FAMILY PRACTICE 05/22/20 documented as of this encounter
--- NOTE | 2025-05-17 07:03 | WPDANESEPPF ---
Anes - Initial Pre Proc Eval Procedure: Operation Date: 05/17/25 07:30 Proposed Procedures p Robotic Assisted Hysterectomy with Bilateral Salpingo-oophorectomy - Tani Ireland MD Date/Time: 05/17/25 07:03 Surgeon: Tani Ireland MD Pre Op Diagnosis: BRCA1 Gen Mutation Detection Patient Data Age: 39 Gender: F Height: 1.49 m Weight: 63.2 kg Allergies Allergy/AdvReac Type Severity Reaction Status Date / Time amoxicillin Allergy Intermediate VOMITTING,I Verified 05/14/25 14:42 TCHING clavulanic acid Allergy Intermediate VOMITTING,I Verified 05/14/25 14:42 TCHING Home Medications ?Medication ?Instructions ?Recorded ?Confirmed ?Type c-Semaglutide/Niacinamide 2.5 mg IM WEEKLY 05/14/25 05/14/25 History cyclobenzaprine 10 mg tablet 10 mg PO TID PRN spasms 05/14/25 05/14/25 History drospirenone (contraceptive) 4 mg 1 tablet PO DAILY 05/14/25 05/14/25 History (28) tablet (Slynd) gabapentin 300 mg capsule 300 mg PO HS PRN pain 05/14/25 05/14/25 History trazodone 50 mg tablet 50 mg PO HS PRN sleep 05/14/25 05/14/25 History Patient hx anesthesia problems: none Family hx anesthesia problems: none Results Review: All pre-operative results and documents have been reviewed as part of the pre-operative evaluation. [facility] Social History Social History Smoking packs per day: 1 Smoking cigarettes per day: 20.0 Years smoked: 10 Smoking pack-years: 10.00 Smoking status: Former smoker Tobacco type: cigarettes and e-cigarettes/vaping Smoking end date: 05/14/15 Alcohol intake: current Living arrangements: with family Spiritual care concerns: No Anes - Eval Final PreProcedure Day of Procedure 05/17/25 07:03 Patient weight: overweight Heart: regular rate and rhythm Lungs: clear to auscultation Airway: Mallampati scale class II Neurological: alert and oriented Last oral intake: >/= 8 hours ASA classification: II Emergent: no Anesthetic plan: proceed Anesthesia type and monitoring: general ETT and standard monitoring Results Review: All pre-operative results and documents have been reviewed as part of the pre-operative evaluation. Informed Consent: The patient's anesthetic plan and its attendant risks and benefits were discussed with the patient/family/POA. Questions were solicited and answers provided to the satisfaction of the patient/family/POA.
[2025-05-17] MEDS: LACTATED RINGERS 1,000 ML 30 ML IV CONT ×2 (07:05→09:19)
[2025-05-17] MEDS: KETOROLAC 15 MG/ML VIAL (*BKC) IV PUSH (07:12)
[2025-05-17] MEDS: ACETAMINOPHEN 500 MG TABLET 1000 MG PO ×3 (07:12→17:40)
[2025-05-17] MEDS: SCOPOLAMINE 1 MG PATCH 1 PATCH TRANSDERM (07:15)
--- NOTE | 2025-05-17 07:17 | WPDHPUPDATE1 ---
History and Physical Update Update Date/Time: 05/17/25 07:17 History and Physical has been reviewed, including an updated exam of the patient. There are NO changes in the patient's condition. Risks, benefits, and alternatives have been discussed and questions answered. Patient agrees to proceed with procedure.
[2025-05-17] MEDS: ceFAZolin 2 GM/D5W 50 ML 2 GM/50 ML BAG IVPB (07:28)
[2025-05-17 07:44] LABS: BEDSIDEPREGUCG Negative (Negative)
--- NOTE | 2025-05-17 08:30 | S_PTH ---
PATIENT: Loni Momin LOC: [facility] U#:[id number] AGE/SX: 39/F ROOM: RE05/17/[address]: Tani Ireland MD : 1985 BED: DIS: 05/18/2025 SPEC #: [id number] RECD: 05/17/25 09:44 STATUS: KARLO REQ #: [id number] ISAI: 05/17/25 08:[address]: Tani Ireland DEPT: [facility] Surgical RECD BY: Libby Madison ENTERED: 05/17/25 09:45 SP TYPE: Surgical OTHR DR: Dionicio Thomas M.D. Tissues: A - Uterus Procedures: Hematoxylin and Eosin Stain Gross and Microscopic Level 5
[2025-05-17] MEDS: ceFAZolin SODIUM 1 GM VIAL (08:31)
--- NOTE | 2025-05-17 09:27 | P.OP_ITS ---
Procedure Note - Detailed Date of Procedure 05/17/25 Pre-op Diagnosis BRCA1 Gen Mutation Detection Post-op Diagnosis Same Procedure Performed Robot assisted Total hysterectomy with bilateral salpingoophorectomy. Surgeon Tani Ireland MD Anesthesia General Indications heavy vaginal bleeding, pelvic pain Findings normal-appearing uterus, ovaries, and fallopian tubes Description of Procedure This patient was taken to the operating room. She was prepped and draped in the dorsal lithotomy position after induction of general anesthesia. The uterine manipulator and Naveen cup were placed. This was done with a speculum and tenaculum. The speculum was placed. The cervix was grasped with a tenaculum. The stay sutures were placed at 3 and 9:00 a.m.. The stay sutures of 0 Vicryl were tied to the appropriately Size scope after it was slipped around the cervix.. The tip of the AAKASH manipulator was placed in the intrauterine cavity. The cup was slid into place around the cervix and into the fornices. It was locked into place. The sutures were then wrapped around the handle and tied under tension. A 8 mm skin incision was made in the left upper quadrant the abdomen. a 5 mm Visiport trocar was inserted into abdominal cavity and pneumoperitoneum was achieved. A 8 mm supraumbilical incision was made and a 8 mm trocar was inserted into the intrauterine cavity under direct visualization of the scope. an 8 mm incision was made in the right upper quadrant of the abdomen and an 8 mm robotic trocar was placed the inter uterine cavity under direct visualization the scope. An 11 mm trocar was inserted in the right upper quadrant of the abdomen rectal is a cystoscope after an incision was made there as well. The robot was docked. Electronic Orientation of the robot was performed. Bilateral ureteral lysis was performed. This was done from the pelvic brim down to the uterine artery. This was done with careful dissection using sharp and blunt dissection.Bilateral salpingo-oophorectomy was performed. The bilateral infundibulopelvic ligaments were cauterized thoroughly and transected after visualization of the ureter passing over the pelvic brim. In stepwise fashion around the ovary the mesosalpinx was cauterized transected. The Fallopian tube tissue/ mesosalpinx was cauterized transected a stepwise fashion medially to the cornua of the uterus. the tube was transected at the cornua and cauterized thoroughly. The bilateral tubes and ovaries were taken out through the large air lock port. Then In a stepwise fashion along the lateral aspects of the uterus the round ligament and broad ligaments were cauterized transected down to the level of the uterine arteries. A bladder flap was created in the bladder was moved distally to the end of the cervix and over the Naveen cup. The bilateral uterine arteries were cauterized and transected. Colpotomy was then performed. In a circumferential fashion the vagina was transected using unipolar cautery. The incision was made down on the Naveen cup. The uterus and cervix were taken out through the vagina. A pneumo occluder was placed in the vagina. The vaginal cuff was closed with a 0 V lock suture in a running fashion. The pelvis was irrigated with copious amounts antibiotic irrigation. The ureters were again examined and found to be intact and flowing freely under the uterine arteries into the bladder. The bladder was intact. It was examined directly. Cystoscopy was performed after administration of methylene blue. The cystoscope was inserted. Bladder was distended with fluid. The ureteric meatus was obse rved bilaterally. Blue fluid was seen to egress bilaterally. The bladder was drained and the cystoscope was withdrawn. The vagina was irrigated with Betadine solution after removal of the Pneumo oc cluder. the trocars were removed after the robot was undocked. The skin was closed with subacute or Dermabond. The patient was taken to recovery room. She was stable condition. Sponge lap and needle counts were correct x2. Estimated Blood Loss 75 Urine Output 800 Drains Yes Packing No Pathology Yes Complications No immediate complications Condition Stable Disposition Floor
[2025-05-17] MEDS: ONDANSETRON INJ 4 MG/2 ML VIAL IV PUSH ×2 (09:48→17:42)
[2025-05-17] MEDS: fentaNYL CITRATE INJ (*CRX) 100 MCG/2 ML VIAL 25 MCG IV PUSH (10:19)
[2025-05-17] MEDS: diphenhydrAMINE HCl INJ 50 MG/ML VIAL 25 MG IV PUSH (10:30)
--- NOTE | 2025-05-17 10:45 | ADMGEN ---
This patient, Loni Momin, was admitted to OB 2nd Floor Room 289-00. Patient/family oriented to hospital policies and general routines including ID bracelet, bed and alarms, visiting hours, pain management, procedures, bathroom and other care routines, personal items, smoking policy, room service/diet, and visiting hours. Information on how to activate the Rapid Response Team has been discussed. Patient/Family are encouraged to report perceived risks to care and to ask questions if they do not understand what they are told or what they should do.
[2025-05-17] MEDS: DEXTROSE 5%/0.45% SOD CHL 1,000 ML 125 ML IV CONT (11:13)
[2025-05-17] MEDS: SIMETHICONE 80 MG TAB.CHEW PO ×2 (11:54→17:39)
[2025-05-17] MEDS: KETOROLAC 30 MG/ML VIAL (*BKC) IV PUSH ×2 (11:55→17:40)
[2025-05-17] MEDS: ESTRADIOL 7 DAY 0.1 MG PATCH TRANSDERM (13:48)
[2025-05-17] MEDS: oxyCODONE HCL (*CRX) 5 MG TAB IR PO ×2 (13:48→19:43)
[2025-05-17] MEDS: DOCUSATE SODIUM 100 MG CAPSULE PO (17:39)
[2025-05-18 00:10] VITALS: BP 105/61; PULSE 65; RESP 16; TEMP 36.7; O2SAT 98
[2025-05-18] MEDS: ACETAMINOPHEN 500 MG TABLET 1000 MG PO ×2 (00:10→07:59)
[2025-05-18] MEDS: KETOROLAC 30 MG/ML VIAL (*BKC) IV PUSH (00:10)
[2025-05-18 04:40] VITALS: BP 113/71; PULSE 76; RESP 18; TEMP 36.8; O2SAT 100
[2025-05-18] MEDS: diphenhydrAMINE HCl CAP 25 MG CAPSULE (04:40)
[2025-05-18] MEDS: oxyCODONE HCL (*CRX) 5 MG TAB IR 10 MG PO (04:40)
[2025-05-18 07:37] VITALS: BP 109/56; PULSE 60; RESP 18; TEMP 36.7; O2SAT 99
[2025-05-18] MEDS: SIMETHICONE 80 MG TAB.CHEW PO (08:00)
[2025-05-18] MEDS: DOCUSATE SODIUM 100 MG CAPSULE PO (08:00)
[2025-05-18] MEDS: IBUPROFEN 600 MG TABLET PO (08:00)
--- NOTE | 2025-05-18 11:43 | PM.GYNPNOP ---
CONSTRUCTION SITE MANAGER - A/P Postoperative Procedures: Procedures Operation Date: 05/17/25 07:30 Actual Procedure Side Surgeon p Robotic Assisted Hysterectomy with Bilateral Salpingo-oophorectomy Bilateral Tani Ireland MD Postoperative day: 1 Postoperative status: doing well Postoperative plan: see orders Time Spent With Patient Time: Total time spent is greater than 50% in coordination of care (as documented) at patient's floor/unit and/or counseling patient: Time with patient: less than 15 minutes CONSTRUCTION SITE MANAGER- PN:Subj Post-Op Subjective Date/time seen: 05/18/25 11:43 Subjective: patient reports feeling better, patient has no complaints and pain is well controlled Exam Const: General: healthy appearing, comfortable and no acute distress Resp: Auscultation: clear to auscultation bilaterally, no rales, no rhonchi and no wheezes Cardio: Rate: regular rate Heart sounds: no click, no murmurs and no rubs GI: Inspection: non-distended Auscultation: normal bowel sounds Extrem: General: normal to inspection, no pedal edema and no calf tenderness CONSTRUCTION SITE MANAGER - PN: Obj Data Vital Signs Vital Signs: Vital Signs - 24 hr 05/17/25 15:00 05/17/25 15:00 05/17/25 20:08 Temperature 98.4 F 98.2 F Pulse Rate 80 60 Respiratory Rate 16 18 Blood Pressure 104/58 L 99/50 L Pulse Oximetry 100 99 Oxygen Delivery Room Air 05/17/25 20:08 05/18/25 00:10 05/18/25 04:40 Temperature 98.1 F 98.2 F Pulse Rate 65 76 Respiratory Rate 16 18 Blood Pressure 105/61 113/71 Pulse Oximetry 98 100 Oxygen Delivery Room Air 05/18/25 04:40 05/18/25 07:37 05/18/25 08:00 Temperature 98.1 F Pulse Rate 60 Respiratory Rate 18 Blood Pressure 109/56 L Pulse Oximetry 99 Oxygen Delivery Room Air Room Air Intake/Output Intake/Output: Intake & Output 05/15/25 05/16/25 05/17/25 05/18/25 23:59 23:59 23:59 23:59 Intake Total 3215 Output Total 2220 Balance 995 Meds/Results Medications: Active Medications Generic Name Dose Route Start Last Admin Trade Name Freq PRN Reason Stop Dose Admin Acetaminophen 1,000 mg 05/17/25 12:00 05/18/25 07:59 Acetaminophen 500 Mg Tablet PO 1,000 mg Q6HR DRAKE Administration Cyclobenzaprine HCl 10 mg 05/17/25 10:34 Cyclobenzaprine Hcl 10 Mg Tablet PO TID PRN spasms Docusate Sodium 100 mg 05/17/25 17:00 05/18/25 08:00 Docusate Sodium 100 Mg Capsule PO 100 mg BID DRAKE Administration Estradiol 0.1 mg 05/17/25 13:10 05/17/25 13:48 Estradiol 7 Day 0.1 Mg Patch TRANSDERM 0.1 mg Q7D DRAKE Administration Gabapentin 300 mg 05/17/25 10:34 Gabapentin 300 Mg Capsule PO HS PRN pain Dextrose/Sodium Chloride 1,000 mls @ 125 mls/hr 05/17/25 10:34 05/17/25 15:25 Dextrose 5% Sodium Chloride 0.45% IV CONT 0 mls/hr .Q8H DRAKE Infusion Ibuprofen 600 mg 05/18/25 06:00 05/18/25 08:00 Ibuprofen 600 Mg Tablet PO 600 mg Q6HR DRAKE Administration Naloxone HCl 0.1 mg 05/17/25 10:34 Naloxone Hcl 0.4 Mg/Ml Vial IV PUSH Q2M PRN Respiratory rate less than 10 Ondansetron HCl 4 mg 05/17/25 10:34 05/17/25 17:42 Ondansetron Inj 4 Mg/2 Ml Vial IV PUSH 4 mg Q6H PRN Administration Nausea And Vomiting Oxycodone HCl 5 mg 05/17/25 10:34 05/17/25 19:43 Oxycodone Hcl (*Crx) 5 Mg Tab Ir PO 5 mg Q4H PRN Administration Pain Rated 4-6 Oxycodone HCl 10 mg 05/17/25 10:34 05/18/25 04:40 Oxycodone Hcl (*Crx) 5 Mg Tab Ir PO 10 mg Q6H PRN Administration Pain Rated 7-10 Simethicone 80 mg 05/17/25 12:00 05/18/25 08:00 Simethicone 80 Mg Tab.Chew PO 80 mg TIDWM DRAKE Administration Trazodone HCl 50 mg 05/17/25 10:34 Trazodone Hcl 50 Mg Tablet PO HS PRN sleep
== END 2025-05-18 12:25 | disposition home or self-care (01) ==
LOC: ANHSURGERY 07:47 → ANHOB2 10:37
PROVIDERS: PCP Family Medicine; Visit Provider Obstetrics & Gynecology
PROC: (CPT 58571; principal; 2025-05-17 07:30)
DX: D27.1 Benign neoplasm of left ovary (principal); N83.02 Follicular cyst of left ovary; N88.8 Other specified noninflammatory disorders of cervix uteri; N80.03 Adenomyosis of the uterus; D25.9 Leiomyoma of uterus, unspecified; G89.18 Other acute postprocedural pain; J45.909 Unspecified asthma, uncomplicated; M79.7 Fibromyalgia; Z98.890 Other specified postprocedural states; M19.90 Unspecified osteoarthritis, unspecified site; Z79.85 Long-term (current) use of injectable non-insulin antidiabetic drugs; Z15.01 Genetic susceptibility to malignant neoplasm of breast; Z15.09 Genetic susceptibility to other malignant neoplasm; Z98.1 Arthrodesis status; Z87.891 Personal history of nicotine dependence; Z80.1 Family history of malignant neoplasm of trachea, bronchus and lung; Z80.3 Family history of malignant neoplasm of breast; Z80.49 Family history of malignant neoplasm of other genital organs; Z80.41 Family history of malignant neoplasm of ovary; Z80.8 Family history of malignant neoplasm of other organs or systems
CPT/HCPCS: 58571; S2900; 88307; 99199; A9270; J0690; J1100; J1171; J1200; J1885; J2003; J2250; J2405; J2704; J3010; J7030; J7120

== ENCOUNTER 2025-07-09 03:58 | Emergency (ER) | payer BC, SELFPAY ==
--- NOTE | ~2025-07-09 | CT_ITS ---
EXAMINATION: CT pelvis w con DATE: 07/09/2025 05:15 INDICATION: Vaginal bleeding post hysterectomy. TECHNIQUE: Computed tomography (CT) of the pelvis was performed with 100 cc Omnipaque 350 intravenous contrast. The dose-length product was 245.38 mGy-cm. Automated exposure control and iterative recons truction technique were employed. COMPARISON: None FINDINGS: No significant vascular abnormality. Trace fluid/stranding in the pelvis, likely of no clin ical significance. No discrete walled off fluid collection to suggest abscess. No free air. Nonobstru ctive bowel pattern. No significant bone or joint abnormality. Status post hysterectomy. There is a u estee remnant of the bladder. No lymphadenopathy. IMPRESSION: 1. No significant pelvic abnormality. No evidence for abscess. Reviewed, dictated and finalized at location A.
[2025-07-09 04:01] VITALS: BP 113/68; PULSE 68; RESP 14; O2SAT 98
--- OUTSIDE RECORDS SUMMARY | 2025-07-09 04:01 | XMS_ITS | Clinical Summary ---
Author Organization [facility] Address [facility] [place] [address] Care Team Providers Care Mid Level Project Manager Name Role Phone Dionicio Thomas MD [...] 06/05/2020 Impingement syndrome of left shoulder 05/22/2020 Family History Medical History Relation Comments No [...] Sex Assigned at Female 12/24/2024 9:40 AM HYDRAULIC AND PLUMBING INSTALLER Legal Sex Female 5:52 PM HYDRAULIC AND PLUMBING INSTALLER Gender Identity Not on file Sexual Orientation Not on file Last Filed Vital Signs Vital Sign Reading Time Taken Comments Blood Pressure 120/80 11/24/2024 6:50 AM HYDRAULIC AND PLUMBING INSTALLER Pulse 108 11/24/2024 3:53 AM HYDRAULIC AND PLUMBING INSTALLER Temperature 36.9 C (98.5 F) 11/24/2024 3:53 AM HYDRAULIC AND PLUMBING INSTALLER Respiratory Rate 17 11/24/2024 3:53 AM HYDRAULIC AND PLUMBING INSTALLER Oxygen Saturation 97% 11/24/2024 6:50 AM HYDRAULIC AND PLUMBING INSTALLER Inhaled Oxygen Concentration - - Weight 65.8 kg (145 lb) 02/20/2025 10:57 AM CDT Height 148.6 cm (4' 10.5) 02/20/2025 10:57 AM C DT Body Mass Index 29.79 02/20/2025 10:57 AM CDT Plan of Treatment Health Maintenance Due Date Last Done Comments Annual Physical 1986 Hepatitis C 2001 Hepatitis B Vaccines (1 of 3 - 19+ 3-dose series) 2002 HPV Vaccines (1 - 3-dose SCD M series) 2010 COVID-19 Vaccine ( - 2023-2 5 season) 2024 06/18/2022, 03/05/2021 Cervical Cancer [...] Cervical Cancer Screening wi th HPV 10/17/2028 Meningococcal B Vaccine Aged Out No l [...] ROBERTA KEREN DIGI Routine 10/26/2024 10:49 AM HYDRAULIC AND PLUMBING INSTALLER Visit for screening mammogram from Last 3 Months or Most Recently Relevant to Health Maintenance Results * MG SCREENING W ROBERTA KEREN DIGI (10/26/2024 10:49 AM HYDRAULIC AND PLUMBING INSTALLER) Anatomical Region Laterality Modality Breast Bilateral Mammography 10/26/2024 11:2 0 AM HYDRAULIC AND PLUMBING INSTALLER Impressions 10/26/2024 11:20 AM HYDRAULIC AND PLUMBING INSTALLER IMPRESSION: No suspicious change since 10/17/2023. Recommendation: 1: Routine Screening Bilateral in 1 Year Assessment: ACR BI-RADS 2 - BENIGN FINDING(S) Ordered By: TANI CUMMINS Interpreted By: Nehemiah Bonilla MD, 10/26/2024 11:20 AM Narrative 10/26/2024 11:20 AM HYDRAULIC AND PLUMBING INSTALLER [address] [place] [address] Examination: Digital screening mammogram with CAD. Clinical [...] Most Recently Relevant to Health Maintenance Insurance [facility] Care Teams Mid Level Project Manager Relationship Specialty Start Date End Date Dionicio Thomas MD [address] [place] [address] PCP - General FAMILY PRACTICE 05/22/20
--- OUTSIDE RECORDS SUMMARY | 2025-07-09 04:01 | XMS_ITS | Clinical Summary ---
Author Organization [facility] Address [address] [place] [address] Phone Care Team Providers Care Generating Plant Superintendent Name Role Phone Dionicio Thomas MD Primary [...] Comments Hepatitis C Virus (HCV) Screening 1985 Hepatitis B Immunization (1 of 3 - 19+ 3-dose series) 2002 Pneumococcal Immunization Combined (1 of 2 - PCV) 2002 Human Papillomavirus (HPV) Immunization (1 - 3-dose SCDM series) 2010 HPV/Cotest 2013 SARS-COV-2 Immunization ( - season) 2024 06/18/2022, 03/05/2021 Mammogram 10/17/2024 10/17/2023, 10/17/2023 Influenza Immunization (#1) 2025 Cervical Cancer Screening (CCS) 10/17/2026 Pap [...] age to complete this topic Insurance [facility] Care Teams Generating Plant Superintendent Relationship Specialty Start Date End Date Dionicio Thomas MD [address] [address] PCP - General Family Medicine 04/22/24 Anton Emmanuel MD [address] [phone] Consulting Physician Urology 05/16/24
--- OUTSIDE RECORDS SUMMARY | 2025-07-09 04:01 | XMS_ITS | Clinical Summary ---
Author Organization [employer] [facility] Address [address] [place] [address] Care Team Providers Care Silk Top Hat Body Maker Name Role Phone Unavailable Primary Care Provider Unavailabl e Social History Tobacco Use Types Packs/Day Years Used Date Smoking Tobacco: Never Assessed Comments Unknown Sex and Gender Information Value Date Recorded Sex Assigned at Not on file Legal Sex Female 11:35 AM SADDLE LINING STITCHER Gender Identity Not on file Sexual Orientation Not on file Plan of Treatment Upcoming Encounters Date Type Department Care Team ([facility] st Contact Info) Description 08/07/2025 1:15 PM CDT Appointment [facility] EEG EM[facility] [address] [place] [address] Marcus Bullard MD [address] [facility] [address] [place] [address] Health Maintenance Due Date Last Done Comments HPV VACCINES (1 - 3-dose series) 1998 DTAP/TDAP/TD VACCINES (1 - Tdap) 2002 HEPATITIS B VACCINES (1 of 3 - 19+ 3-dose series) 06/28 HPV/Cotest (21-29) 2004 CERVICAL CANCER SCREENING 2013 HPV/Cotest (30-65) 2013 PAP SMEAR 2013 BREAST CANCER SCREENING 2023 INFLUENZA VACCINE (#1) 2025 Insurance [employer]
--- OUTSIDE RECORDS SUMMARY | 2025-07-09 04:01 | XMS_ITS | Clinical Summary ---
Author Organization [facility] Address [address] [place] [address] Care Team Providers Care Utility Mechanic Name Role Phone Dionicio Thomas MD Primary Care Provider [phone] Source Comments [facility],non-owned Affiliates and Associated Physician Practices is amultiple site organization consisting of ambulatory clinics and hospital sitesin [place], [place], [place] and [place]. This disclosure is being madepursuant to the Care Everywhere program and may not contain all information available regarding this patient. Last updated [email or web address] Allergies Active Allergy Reactions Criticality Noted Date [...] (one) tablet by mouth once daily Active propranolol (Inderal) 40 MG tablet Take 0.5 (one-half) tablet by mouth Active Active Problems Problem Noted Date Diagnosed Date History of fusion of cervical spine 01/30/2019 Neuropathy, arm, left 01/30/2019 Encounters Date Type Department Care Team Description 06/05/2025 10:52 AM CDT - 06/05/2025 11:59 PM CDT Hospital Encounter [facility] [address] [place] [address] Oneil Marte MD Shelton, Earl Pérez MD Discharge Disposition: Home or Self Care [...] Sign Reading Time Taken Comments Blood Pressure 111/74 06/05/2025 10:58 AM CDT Pulse 56 06/05/2025 10:58 AM CDT Temperature 36.6 C (97.8 F) 06/05/2025 10:58 AM CDT Respiratory Rate 18 06/05/2025 10:58 AM CDT Oxygen Saturation 100% 06/05/2025 10:58 AM CDT Inhaled Oxygen Concentration - - Weight 63.5 kg (140 lb) 03/06/2025 4:48 PM CDT Height 149.9 cm (4' 11) 03/06/2025 4:48 PM CDT Body Mass Index 28.28 03/06/2025 4:48 PM CDT Plan of Treatment Upcoming Encounters Date Type Department Care Team (Late st Contact Info) Description 07/17/2025 4:30 PM CDT Appointment [facility] [address] [place] [id number] Health Maintenance Due Date Last Done Comments LIPID TESTING 1985 HIV SCREENING 1998 HEPATITIS C SCREENING 07/05/2001 DTAP/TDAP/TD VACCINES (1 - Tdap) 2002 HEPATITIS B VACCINE (1 of 3 - 19+ 3-dose series) 2002 HPV VACCINE (1 - 3-dose SCDM series) 2010 COVID-19 VACCINE (3 - season) 2024 06/18/2022, 03/05/2021 DEPRESSION SCREENING 11/28/2024 INFLUENZA VACCINE (#1) 2025 PAP SMEAR 10/17/2026 10/17/2023, 10/17/2023 MAMMOGRAM [...] Diagnosis Comments PAIN MANAGEMENT PROCEDURE TIME Routine 06/05/2025 11:55 AM CDT Cervical spondylosis COMPREHENSIVE METABOLIC PANEL STAT 08/20/2016 1:34 PM CDT from Last 3 Months or Most Recently Relevant to Health Maintenance Results * Pain Management Procedure Time (06/05/2025 11:55 AM CDT) Anatomical Region Laterality Modality X-Ray Angiograph y Narrative 06/05/2025 11:57 AM CDT Earl Baker MD 06/05/2025 11:58 AM Diagnostic bilateral C3, C4, C5 medial branch [...] on how to reach the clinic or concrete products dispatcher physician at anytime for questions or complaints., Estimated blood loss during procedure 0 ml DOS 06/05/25 Earl Baker MD DIAGNOSTIC IMAGING ORDERA BLES Final Result * (ABNORMAL) COMPREHENSIVE METABOLIC PANEL (08/20/2016 1:34 PM CDT) Pathologist [facility] Glucose 104 74 - 106 mg/dL 08/20/2016 2:[facility] Sodium 137 136 - 145 mmol/L 08/20/2016 2:04 PM [facility] Potassium 3.4(L) 3.5 - 5.1 mmol/L 08/20/2016 2:04 PM [facility] Chloride 105 98 - 107 mmol/L 08/20/2016 2:04 PM [facility] CO2 25 22 - 31 mmol/L 08/20/2016 2:04 PM [facility] Calcium 8.5 8.5 - 10.1 mg/dL 08/20/2016 2:04 PM [facility] Anion Gap 7 5 - 20 mmol/L 08/20/2016 2:04 PM [facility] BUN 8 7 - 21 mg/dL 08/20/2016 2:04 PM [facility] Creatinine 0.84 0.50 - 1.30 mg/dL 08/20/2016 2:04 PM [facility] Alkaline Phosphatase 63 38 - 126 U/L 08/20/2016 2:04 PM [facility] ALT 17 13 - 61 U/L 08/20/2016 2:04 PM [facility] AST 12 5 - 40 U/L 08/20/2016 2:04 PM [facility] Protein Total 7.8 6.4 - 8.2 gm/dL 08/20/2016 2:04 PM [facility] Albumin 4.1 3.4 - 5.0 gm/dL 08/20/2016 2:04 PM [facility] Bilirubin Total 0.5 0.2 - 1.0 mg/dL 08/20/2016 2:04 PM [facility] eGFR by MDRD >60 >60 mL/min/1.7 3m2 08/20/2016 2:04 PM CDT [facility] eGFR by MDRD >60 >60 mL/min/1.7 3m2 08/20/2016 2:04 PM CDT [facility] Blood BLOOD SPECIMEN / Unknown 08/20/2016 1:34 PM CDT 08/20/2016 1:38 PM CDT Bee Alexandre RETORT FURNACE OPERATOR-ANALYTICAL TECH LAB - CHEMISTRY ORDERABLES Final Result [facility] [address] [place] [address] from Last 3 Months or Most Recently Relevant to Health Maintenance Insurance [employer] Care Teams Utility Mechanic Relationship Specialty Start Date End Date Dionicio Thomas MD [address] [place] [address] [place] [address] PCP - General Family Medicine 07/22/21
--- OUTSIDE RECORDS SUMMARY | 2025-07-09 04:01 | XMS_ITS | Encounter Summary ---
Author Organization [facility] Address [address] [place] [address] Care Team Providers Care Building Associate Name Role Phone Dionicio Thomas MD Primary Care Provider Encounter Details Date Type Department Care Team (Late st Contact Info) Description 02/20/2025 [place]akie Message Enc [facility] [address] [address] [address] [place] [address] [place] [address] Visit Follow Up Social History Tobacco [...] Sex Assigned at Female 12/24/2024 9:40 AM RADIOLOGY TRANSCRIPTIONIST Legal Sex Female 5:52 PM RADIOLOGY TRANSCRIPTIONIST Gender Identity Not on file Sexual Orientation Not on file documented as of this encounter Plan of Treatment Not on file documented as of this encounter Visit Diagnoses Not on filedocumented in this encounter Care Teams Building Associate Relationship Specialty Start Date End Date Dionicio Thomas MD [address] [place] [phone] PCP - General FAMILY PRACTICE 05/22/20 documented as of this encounter
--- OUTSIDE RECORDS SUMMARY | 2025-07-09 04:01 | XMS_ITS | Encounter Summary ---
Author Organization [facility] Address [facility] [place] [address] Care Team Providers Care Sales And Marketing Representative Name Role Phone None, Provider Primary Care Provider Unavaila ble Obi Ware MD Primary Care Provider [phone] Dionicio Thomas MD Primary Care Provider Encounter Details Date Type Department Care Team (Late st Contact Info) Description 05/05/2019 Abstract [facility] CONVERSION [address] [place], [place] [id number] , Generic Conversion, Social History Tobacco Use Types Packs/Day Years Used Date Smoking Tobacco: Never Assessed Comments Unknown Sex and Gender Information Value Date Recorded Sex Assigned at Female 12/24/2024 9:40 AM HVAC REFRIGERATION TECHNICIAN Legal Sex Female 5:52 PM HVAC REFRIGERATION TECHNICIAN Gender Identity Not on file Sexual Orientation Not on file documented as of this encounter Plan of Treatment Not on file documented as of this encounter Visit Diagnoses Not on filedocumented in this encounter Care Teams Sales And Marketing Representative Relationship Specialty Start Date End Date None, Provider, PCP - General 05/14/19 07/26/19 Obi Ware MD PCP - General FAMILY PRACTICE 07/27/19 05/21/20 Dionicio Thomas MD [address] [place] [address] PCP - General FAMILY PRACTICE 05/22/20 documented as of this encounter
--- OUTSIDE RECORDS SUMMARY | 2025-07-09 04:01 | XMS_ITS | Encounter Summary ---
Author Organization [facility] Address [address] [place] [address] Care Team Providers Care Spa Assistant Manager Name Role Phone Dionicio Thomas MD Primary Care Provider [phone] Encounter Details Date Type Department Care Team (Late st Contact Info) Description 03/01/2023 New[place]ubby Message Enc [place] [address] Misha Perla MD [address] [place] [address] Visit Follow Up Social History Tobacco Use [...] Sex Assigned at Female 12/24/2024 9:40 AM ABE TEACHER Legal Sex Female 5:52 PM ABE TEACHER Gender Identity Not on file Sexual Orientation Not on file COVID-19 Exposure Response Date Recorded In the last 10 days, have yo u been in contact with someone who was confirmed or suspected to have Coronavirus/COVID-19? No / Unsure 03/01/2023 1:43 PM CDT documented as of this encounter Plan of Treatment Not on file documented as of this encounter Visit Diagnoses Not on filedocumented in this encounter Care Teams Spa Assistant Manager Relationship Specialty Start Date End Date Dionicio Thomas MD [address] [place] [address] PCP - General FAMILY PRACTICE 05/22/20 documented as of this encounter
--- OUTSIDE RECORDS SUMMARY | 2025-07-09 04:01 | XMS_ITS | Encounter Summary ---
Author Organization [facility] - [facility] Address [address] [place] [id number] Care Team Providers Care Solidworks Designer Name Role Phone Dionicio Thomas MD Primary Care Provider Encounter Details Date Type Department Care Team (Late st Contact Info) Description 10/03/2024 Codota Message Enc [facility] [address] [address] [place] [address] [place] [address] [place] [id number] Visit Follow Up Social History Tobacco [...] Sex Assigned at Female 12/24/2024 9:40 AM [facility] DIRECTOR Legal Sex Female 5:52 PM [facility] DIRECTOR Gender Identity Not on file Sexual Orientation Not on file documented as of this encounter Plan of Treatment Not on file documented as of this encounter Visit Diagnoses Not on filedocumented in this encounter Care Teams Solidworks Designer Relationship Specialty Start Date End Date Dionicio Thomas MD [address] [facility] [place] [id number] PCP - General FAMILY PRACTICE 05/22/20 documented as of this encounter
--- OUTSIDE RECORDS SUMMARY | 2025-07-09 04:01 | XMS_ITS | Continuity of Care Document ---
Author Organization [facility] Address [address] [place] [address] Phone Care Team Providers Care Automatic Silk Screen Printer Name Role Phone Andre AVINA, Ishmael Unavailable Unavailable Allergies, Adverse Reactions, Alerts Substance Reaction Status Criticality POTASSIUM CLAVULANATE Active No Inf ormation AMOXICILLIN TRIHYDRATE Active No In formation Medications Medication Instructions Dosage Effective Dates (start - stop) Status Comments Rockdale 5 mg-325 mg tablet take 1-2 tabs orally every 6 hours as needed - Active patient informed PCP should refill this medication. this will be the last refill. thanks Zanaflex 2 mg capsule take 2 capsule by oral route every 8 hours as needed - Active BENADRYL (unknown strength) take 2 capsule by oral route every 4 - 6 hours as needed Not Available - Active ZOLOFT (unknown strength) take 1 tablet by oral route every day Not Available - Active NEURONTIN (unknown strength) take 3 capsule by oral route 3 times every day Not Available - Active Procedures Procedure Date OFFICE/OUTPATIENT VISIT, EST OFFICE/OUTPATIENT VISIT, EST OFFICE/OUTPATIENT VISIT, EST Spine X-Ray 1 View (Any Level) 15 OFFICE/OUTPATIENT VISIT, EST Spine X-Ray 1 View (Any Level) 14 Spine X-Ray 1 View (Any Level) 14 POSTOP FOLLOW-UP VISIT Univ Cervical Collar POSTOP FOLLOW-UP VISIT POSTOP FOLLOW-UP VISIT Cervical X-Ray 3 Views Or Less (AP, LAT) Cervical X-Ray 3 Views Or Less (AP, LAT) Thoracic X-Ray 2 Views (AP, LAT) 2013 POSTOP FOLLOW-UP VISIT Cervical X-Ray 3 Views Or Less (AP, LAT) Thoracic X-Ray 2 Views (AP, LAT) 2013 SP BONE AGRFT STRUCT ADD-ON Arthrodesis Anterior Interbody Cervical Below C2 Arthrodesis Anterior Interbody Below C2 Each Addit FLUOROSCOPE EXAMINATION INSERT SPINE FIXATION DEVICE APPLY SPINE PROSTH DEVICE REMOVAL OF VERTEBRAL BODY MICROSURGERY ADD-ON OFFICE/OUTPATIENT VISIT, EST Centre Adj Collar OFFICE/OUTPATIENT VISIT, EST Cervical X-Ray 3 Views Or Less (AP, LAT) OFFICE/OUTPATIENT VISIT, NEW Advance Directives Directive Yes / No Effective Date File Name No Information Encounters Encounter Description Practice Location Reason(s) For Visit Diagnoses Date Provider Providers Copied on Encounter [facility], [address] [place] [address], [id number], tel:[phone] [facility] No Information Powell Abid. [address] [place] [address], [address], [id number], [place]. tel:[phone] OFFICE/OUTPAT IENT VISIT, EST -[facility], [facility] [place], [place], [id number], [place] tel:[phone] [facility] No Information 5 Powell Abid. [facility] [address], [id number], [place]. tel:[phone] Referring Provider: Aydin foote, [address], [place], [address] . tel:[phone] [facility], [facility] [place], [place], [id number], [place] tel:[phone] [facility] No Information Powell Abid. [address], [id number], [place]. tel:[phone] OFFICE/OUTPAT IENT VISIT, EST [facility], [address] [place] [address], [id number], [place] tel:[phone] [facility] No Information Powell Abid. [address] [place] [address], [id number], [place]. tel:[phone] Referring Provider: Aydin foote, [address], [place], [address] . tel:[phone] OFFICE/OUTPAT IENT VISIT, EST [facility], [address] [place] [address], [id number], [place] tel:[phone] [facility] No Information Powell Abid. [facility] [address], [id number], [place]. tel:[phone] Referring Provider: Aydin foote, [address], [place], [address] . tel:[phone] OFFICE/OUTPAT IENT VISIT, EST [facility], [address] [place] [address], [id number], [place] tel:[phone] [facility] No Information Powell Abid. [address] [place] [address], [id number], [place]. tel:[phone] Referring Provider: [address], [place], [address] . tel:[phone] [facility], [facility] [place], [id number], [place] tel:[phone] [facility] No Information 4 Powell Abid[address] [place] [address], [address], [id number], [place]. tel:[phone] Referring Provider: Aydin foote, [address], [place], [address] . tel:[phone] [facility], [address] [place] [address], [id number], [place] tel:[phone] [facility] No Information 4 Powell Abid. [address] [place] [address], [address], [id number], [place]. tel:[phone] [facility], [address] [place] [address], [id number], [place] tel:[phone] [facility] No Information 4 Powell Abid. [address] [place] [address], [address], [id number], [place]. tel:[phone] Referring Provider: Self Referred, [address] [address], [place], [address] . tel:[phone] [facility], [address] [place] [address], [id number], [place] tel:[phone] [facility] No Information 4 Powell Abid. [address] [place] [address], [address], [id number], [place]. tel:[phone] Referring Provider: Self Referred, [address] [address], [place], [address] . tel:[phone] [facility], [facility] [place], [place], [id number], [place] tel:[phone] [facility] No Information Powell Abid. [address] [facility], [address], [id number], [place]. tel:[phone] Referring Provider: Aydin foote, [address], [place], [address] . tel:[phone] -[facility], [address] [place] [address], [id number], [place] tel:[phone] 2374 [facility] No Information Powell Abid. [address] [place] [address], [id number], [place]. tel:[phone] Referring Provider: Aydin foote, [address], [place], [address] . tel:[phone] OFFICE/OUTPAT IENT VISIT, EST [facility], [address] [place] [address], [id number], [place] tel:[phone] 5528 [facility] No Information 4 Powell Abid. [address] [facility], [address], [id number], [place]. tel:[phone] Referring Provider: Aydin foote, [address], [place], [address] . tel:[phone] -[facility], [address] [place] [address], [id number], [place] tel:[phone] [facility] No Information 4 Powell Abid. [address] [place] [address], [id number], [place]. tel:[phone] OFFICE/OUTPAT IENT VISIT, [facility], [address] [place], [place], [id number], tel:[phone] [facility] No Information 8 4 Powell Abid. [address] [facility], [address], [place], [id number], . tel:[phone] Referring Provider: Self Referred, [address] [address], [place], [address] . tel:[phone] OFFICE/OUTPAT IENT VISIT, [facility], [address] [place], [place], [id number], tel:[phone] [facility] No Information 4 Powell Abid. [address] [facility], [facility] [address], [place], [id number], . tel:[phone] Referring Provider: Aydin foote, [address], [place], [address] . tel:[phone] Family History Family Member Type Diagnosis Age At Onset No Information Payers Payer name Insurance type Covered republican ID Authordomoa juan miguelpanfilo(s) [facility] [id number] Social History Type Description Quantity Date Captured Comments Sex Female Smoking Status No Information Chief Complaint And Reason For Visit No Information Reason For Referral Reason For Referral No Information History Of Present Illness Encounter Date Complaint History Of Prese nt Illness No Information Functional Status Date Functional Assessmen t No Information Instructions Date Instruction Additional Infor mation No Information Assessments Type Assessment Date No Information Patient Care Teams Name Effective Dates (start - stop) Status Members No Information
--- NOTE | 2025-07-09 04:22 | ED_ITS ---
HPI - Abdominal Pain General Chief Complaint: Abdominal Pain Stated Complaint: abd pain, vag bleeding. hysterectomy 08/17. Time Seen by Provider: 07/09/25 04:05 History of Present Illness HPI narrative: 39-year-old female proximally 2 months status post laparoscopic hysterectomy and bilateral salpingo-oophorectomies with Dr. Ireland as her OBGYN. She has been having an unremarkable postop recovery. . For last week she has been having some pink discoloration when she wipes which is abnormal for her. She called her OB GYNs office and was told not to worry about it unless she has started having bright red bleeding. This evening she noted that she was having some lower abdominal pain and noticed that she was wiping way bright red blood and having vaginal pain and abdominal cramping similar to a menstrual cycle. Denies any loss of consciousness or any other symptoms such as nausea, vomiting, upper abdominal pain, fever chills. No dysuria. Denies any vaginal intercourse or any insertion or any potential trauma or tears. Denies any bloody bowel movements or any dysuria. States that she was wiped away multiple times and still having bright red bleeding on the tissue paper. Was otherwise in her normal state of health. Related Data Home Medications ?Medication ?Instructions ?Recorded ?Confirmed ?Last Taken ?Type c-Semaglutide/Niacinamide 2.5 mg IM WEEKLY 05/14/25 05/14/25 05/03/25 History cyclobenzaprine 10 mg tablet 10 mg PO TID PRN spasms 05/14/25 05/14/25 Unknown History drospirenone (contraceptive) 4 mg 1 tablet PO DAILY 05/14/25 05/17/25 05/15/25 History (28) tablet (Slynd) gabapentin 300 mg capsule 300 mg PO HS PRN pain 05/14/25 05/14/25 Unknown History trazodone 50 mg tablet 50 mg PO HS PRN sleep 05/14/25 05/14/25 Unknown History Allergies Allergy/AdvReac Type Severity Reaction Status Date / Time amoxicillin Allergy Intermediate VOMITTING,I Verified 07/09/25 03:59 TCHING clavulanic acid Allergy Intermediate VOMITTING,I Verified 07/09/25 03:59 TCHING Review of Systems 2 Review of Systems: As reviewed above in HPI [facility] Social History Social History Smoking packs per day: 1 Smoking cigarettes per day: 20.0 Years smoked: 10 Smoking pack-years: 10.00 Smoking status: Former smoker Tobacco type: cigarettes and e-cigarettes/vaping Smoking end date: 05/14/15 Alcohol intake: current Living arrangements: with family Spiritual care concerns: No Exam 2 Narrative: GENERAL: [Well-appearing, well-nourished, and in no acute distress.] HEAD: [Normocephalic, atraumatic.] EYES: [PERRLA and EOMI.] ENT: Nares clear, no rhinorrhea or epistaxis. Mucous membranes moist. NECK: Supple. CHEST: [Clear to auscultation. No respiratory distress.] HEART: [Regular rate and rhythm]. No murmur heard. [Normal peripheral pulses.] ABDOMEN: [Soft, nondistended], [nontender], [No rigidity or guarding] /RECTAL: Chaperoned vaginal examination with shallow speculum exam conducted to better visualize any potential areas of bleeding was largely unrevealing. No overt vaginal mucosal tearing or bleeding was evident. No external signs of traumatic injury or any blood from the urethral meatus or rectum. EXTREMITIES: Normal range of motion. [No edema.] SKIN: Warm, dry, no rash. NEURO: [No focal deficits]. Alert and oriented [x3.] PSYCH: [Normal mood and affect.] Course Vital Signs Vital signs: Vital Signs Pulse Rate 68 07/09/25 04:01 Respiratory Rate 14 07/09/25 04:01 Blood Pressure 113/68 07/09/25 04:01 Pulse Oximetry 98 07/09/25 04:01 Oxygen Delivery Room Air 07/09/25 04:01 Pulse Rate 68 07/09/25 04:01 Respiratory Rate 14 07/09/25 04:01 Blood Pressure 113/68 07/09/25 04:01 Pulse Oximetry 98 07/09/25 04:01 Oxygen Delivery Room Air 07/09/25 04:01 MDM - Abdominal Pain MDM Narrative Medical decision making narrative: 39-year-old female proximally 2 months status post laparoscopic hysterectomy and bilateral salpingo-oophorectomies with Dr. Ireland as her OBGYN. She has been having an unremarkable postop recovery. . For last week she has been having some pink discoloration when she wipes which is abnormal for her. She called her OB GYNs office and was told not to worry about it unless she has started having bright red bleeding. This evening she noted that she was having some lower abdominal pain and noticed that she was wiping way bright red blood and having vaginal pain and abdominal cramping similar to a menstrual cycle. Denies any loss of consciousness or any other symptoms such as nausea, vomiting, upper abdominal pain, fever chills. No dysuria. Denies any vaginal intercourse or any insertion or any potential trauma or tears. Denies any bloody bowel movements or any dysuria. States that she was wiped away multiple times and still having bright red bleeding on the tissue paper. Was otherwise in her normal state of health. Patient no longer has uterus or any reproductive organs aside from the vagina and vaginal cuff. Denies any bleeding for last 2 months and then this all started recently with pink-tinged and then this evening with bright red blood. Chaperoned vaginal examination with shallow speculum exam conducted to better visualize any potential areas of bleeding was largely unrevealing. No overt vaginal mucosal tearing or bleeding was evident. No external signs of traumatic injury or any blood from the urethral meatus or rectum. Did not do a full insertion of the vaginal speculum given the surgical repair recently with chance of potentially disrupting any of the surgical site or vaginal cuff. CT scan with contrast will be obtained at this time for further evaluation of the pelvis. Labs ordered. Laboratory studies are unremarkable. Patient remains hemodynamically stable. CT unrevealing. Awaiting discussion with patient's OBGYN Dr. Ireland for recommendations and follow-up. Spoke to Dr. Ireland who recommended discharge with quick follow-up in 2 hours into his clinic, suspect likely granulation tissue or something that might need a quick stitch at the vaginal cuff. Discussed this with the patient and she was comfortable with the plan. She has his contact info and the clinic information. She will proceed there and in a couple hours. Patient hemodynamically stable and safe for discharge at this time. Medical Records Attestation: I reviewed the patient's medical records. Lab Data Attestation: I reviewed the patient's lab results. 07/09/25 04:15 07/09/25 04:15 Labs: Lab Results 07/09/25 07/09/25 Range/Units 04:14 04:15 WBC 6.9 (4.5-10.0) K/mm3 RBC 4.68 (4.2-5.4) M/mm3 Hgb 14.2 (12.0-15.0) g/dL Hct 42.6 (37.0-47.0) % MCV 91.0 (80-100) fl MCH 30.3 (26-34) pg MCHC 33.3 (32-36) g/dl RDW 12.5 (11.5-14.5) % Plt Count 182 (150-375) k/mm3 MPV 13.6 H (7.4-10.4) fl Immature Gran % (Auto) 0.1 (0-0.5) % Neut % (Auto) 66.9 (45.5-73.1) % Lymph % (Auto) 22.2 (18.3-44.2) % Kimball % (Auto) 8.1 (2.6-8.5) % Eos % (Auto) 2.3 (0-4.4) % Baso % (Auto) 0.4 (0.2-1.2) % Lymph # (Auto) 1.54 (0.9-3.2) K/mm3 Kimball # (Auto) 0.6 (0.1-0.6) K/mm3 Eos # (Auto) 0.2 (0-0.3) K/mm3 Baso # (Auto) 0.0 (0.0-0.1) K/mm3 Abs Immat Gran (auto) 0.01 (0.00-0.031) K/mm3 Absolute Neuts (auto) 4.6 (1.3-6.7) K/mm3 Absolute Nucleated RBC 0.000 (0.0-0.012) K/mm3 Nucleated RBC % 0.0 (0.0-0.2) % % Immature Plt Fraction 15.9 H (0.9-11.2) % Sodium 138 (137-145) mmol/L Potassium 3.7 (3.4-5.0) mmol/L Chloride 106 (98-107) mmol/L Carbon Dioxide 24 (22-30) mmol/L Anion Gap 8 (4-12) mmol/L BUN 11 (7-17) mg/dL Creatinine 0.85 (0.7-1.0) mg/dL Estim Creat Clear Calc Not Reportable Estimated GFR > 60 (59 - ) Glucose 90 (65-110) mg/dL Calcium 9.0 (8.4-10.2) mg/dL Total Bilirubin 1.0 (0.2-1.3) mg/dL AST 23 (14-36) U/L ALT 14 (6-35) U/L Alkaline Phosphatase 52 (38-126) U/L Total Protein 7.1 (6.3-8.2) g/dL Albumin 4.4 (3.5-5.1) g/dL Lipase 71 (23-300) U/L Urine Color Yellow (Yellow) Urine Appearance Clear (Clear) Urine pH 6.0 (5.0-9.0) Ur Specific [place] 1.016 (1.001-1.035) Urine Protein Negative (Negative) mg/dL Urine Glucose (UA) Negative (Negative) mg/dL Urine Ketones 1+ H (Negative) mg/dL Ur Blood (Man) 1+ H (Negative) Urine Nitrate Negative (Negative) Urine Bilirubin Negative (Negative) Urine Urobilinogen 0.2 (<2.0) mg/dL Leukocyte Esterase Rfl 1+ H (Negative) LAY/UL Urine RBC 3-5 H (0-2) /hpf Urine WBC 6-10 H (0-3) /hpf Ur Squamous Epith Cells Occasional (Few) /hpf Urine Bacteria None seen /hpf Urine Casts 0-2 Imaging Data Attestation: I personally reviewed and interpreted this imaging study as follows: My impression: Impressions Pelvis CT 07/09/25 06:30 IMPRESSION: 1. No significant pelvic abnormality. No evidence for abscess. Radiologist's impression: ITS Impressions Pelvis CT 07/09/25 06:30 IMPRESSION: 1. No significant pelvic abnormality. No evidence for abscess. Discharge Plan Discharge Clinical Impression: Vaginal bleeding, Post-op bleeding Patient Disposition: Home Condition: Stable Instructions: Antibiotic Form Additional Instructions: CT scan and labs are normal. We spoke to Dr. Ireland who wants to see when his clinic today at 9 in the morning. Call the clinic to let them know that you are arriving from the ER, but he says he will see you this morning as an add on regardless at around 9am. Patient Language: Tajik Prescriptions: No Action Slynd 4 mg (28) tablet 1 tablet PO DAILY cyclobenzaprine 10 mg tablet 10 mg PO TID PRN (Reason: spasms) gabapentin 300 mg capsule 300 mg PO HS PRN (Reason: pain) trazodone 50 mg tablet 50 mg PO HS PRN (Reason: sleep) c-Semaglutide/Niacinamide 2.5 mg IM WEEKLY Rx Instructions: Fridays hydrocodone-acetaminophen 5-325 mg tablet 1 - 2 tablet PO Q6H PRN (Reason: pain) Qty: 25 0RF estradiol 1 mg tablet 1 mg PO DAILY Qty: 30 12RF Follow-up/Referrals: Tani Ireland MD [Physician] - 1 Day (post op bleeding) Dionicio Thomas M.D. [Primary Care Provider] - Time of Disposition: 07:04
--- OUTSIDE RECORDS SUMMARY | 2025-07-09 04:28 | XMS_ITS | Continuity of Care Document ---
Author Organization [facility] Address [address] [place] [address] Phone Care Team Providers Care Regrinder Name Role Phone Andre AVINA, Ishmael Unavailable Unavailable Allergies, Adverse Reactions, Alerts Substance Reaction Status Criticality POTASSIUM CLAVULANATE Active No Inf ormation AMOXICILLIN TRIHYDRATE Active No In formation Medications Medication Instructions Dosage Effective Dates (start - stop) Status Comments Siloam 5 mg-325 mg tablet take 1-2 tabs [...] VERTEBRAL BODY MICROSURGERY ADD-ON OFFICE/OUTPATIENT VISIT, EST [place] Adj Collar OFFICE/OUTPATIENT VISIT, EST Cervical X-Ray 3 Views Or Less (AP, LAT) OFFICE/OUTPATIENT VISIT, NEW Advance Directives Directive Yes / No Effective Date File Name No Information Encounters Encounter Description Practice Location Reason(s) For Visit Diagnoses Date Provider Providers Copied on Encounter [facility], [address] [place] [address], [id number], tel:[phone] No Information Powell Abid. [address] [place] [address], [address], [id number], [place]. tel:[phone] OFFICE/OUTPAT IENT VISIT, EST -[facility], [facility] [place], [place], [id number], [place] tel:[phone] [facility] No Information 5 Powell Abid. [facility], [id number], [place]. tel:[phone] Referring Provider: Aydin foote, [address], [place], [address] . tel:[phone] [facility], [facility] [place], [place], [id number], [place] tel:[phone] [facility] No Information Powell Abid. [address], [id number], [place]. tel:[phone] OFFICE/OUTPAT IENT VISIT, EST [facility], [address] [place] [address], [id number], [place] tel:[phone] [facility] No Information Powell Abid. [address] [place] [address], [id number], [place]. tel:[phone] Referring Provider: Aydin foote, [address], [place], [address] . tel:[phone] OFFICE/OUTPAT IENT VISIT, EST [facility], [address] [place] [address], [id number], [place] tel:[phone] [facility] No Information Powell Abid. [facility] [address], [id number], [place]. tel:[phone] Referring Provider: Aydin foote, [address], [place], [address] . tel:[phone] OFFICE/OUTPAT IENT VISIT, EST [facility], [address] [place] [address], [id number], [place] tel:[phone] [facility] No Information Powell Abid. [address] [place] [address], [id number], [place]. tel:[phone] Referring Provider: [address], [place], [address] . tel:[phone] [facility], [facility] [place], [place], [id number], [place] tel:[phone] [facility] No Information 4 Powell Abid. [address] [place] [address], [address], [id number], [place]. tel:[phone] Referring Provider: Aydin foote, [address], [place], [address] . tel:[phone] [facility], [address] [place] [address], [id number], [place] tel:[phone] [facility] No Information 4 Powell Abid. [address] [place] [address], [address], [id number], [place]. tel:[phone] [facility], [address] [place] [address], [id number], [place] tel:[phone] [facility] No Information 4 Powell Abid. [address] [place] [address], [address], [id number], [place]. tel:[phone] Referring Provider: Self Referred, [address] [address], [place], [address] . tel:[phone] [facility], [address] [place] [address], [id number], [place] tel:[phone] [facility] No Information 4 Powell Abid. [address] [place] [address], [address], [id number], [place]. tel:[phone] Referring Provider: Self Referred, [address] [address], [place], [address] . tel:[phone] [facility], [facility] [place], [id number], [place] tel:[phone] [facility] No Information Powell Abid. 2405 [facility], [address], [id number], [place]. tel:[phone] Referring Provider: Aydin foote, [address], [place], [address] . tel:[phone] -[facility], [address] [place] [address], [id number], [place] tel:[phone] 1609 [facility] No Information Powell Abid. [address] [place] [address], [id number], [place]. tel:[phone] Referring Provider: Aydin foote, [address], [place], [address] . tel:[phone] OFFICE/OUTPAT IENT VISIT, EST [facility], [address] [place] [address], [id number], [place] tel:[phone] 6137 [facility] No Information 4 Powell Abid. 2405 [facility], [address], [id number], [place]. tel:[phone] Referring Provider: Aydin foote, [address], [place], [address] . tel:[phone] -[facility], [address] [place] [address], [id number], [place] tel:[phone] [facility] No Information 4 Powell Abid. [address] [place] [address], [id number], [place]. tel:[phone] OFFICE/OUTPAT IENT VISIT, [facility], [address] [place], [place], [id number], tel:[phone] [facility] No Information 8 4 Powell Abid. 2405 [facility], [address], [place], [id number], . tel:[phone] Referring Provider: Self Referred, [address] [address], [place], [address] . tel:[phone] OFFICE/OUTPAT IENT VISIT, [facility], [address] [place], [id number], tel:[phone] [facility] No Information 4 Powell Abid. 2405 [facility], [facility] [address], [place], [id number], . tel:[phone] Referring Provider: Aydin foote, [address], [place], [address] . tel:[phone] Family History Family Member Type Diagnosis Age At Onset No Information Payers Payer name Insurance type Covered green party ID Authordomoa juan miguelpanfilo(s) [facility] [id number] Social History Type Description Quantity Date Captured [...]
--- OUTSIDE RECORDS SUMMARY | 2025-07-09 04:28 | XMS_ITS | Clinical Summary ---
Author Organization [employer] 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 Gender Identity Not on file Sexual Orientation Not on file Plan of Treatment Upcoming Encounters Date Type Department Care Team ([facility] st Contact Info) Description 08/07/2025 1:15 PM CDT Appointment [facility] [address] [place] [address] Marcus Bullard MD [address] [facility] [address] [place] [address] Health Maintenance Due Date Last Done Comments HPV VACCINES (1 - 3-dose series) 1998 DTAP/TDAP/TD VACCINES (1 - Tdap) 2002 HEPATITIS B VACCINES (1 of 3 - 19+ 3-dose series) 06/28 HPV/Cotest (21-29) 2004 CERVICAL CANCER SCREENING 2013 HPV/Cotest (30-65) 2013 PAP SMEAR 2013 BREAST CANCER SCREENING 2023 INFLUENZA VACCINE (#1) 2025 Insurance BCBS [facility]
--- OUTSIDE RECORDS SUMMARY | 2025-07-09 04:28 | XMS_ITS | Clinical Summary ---
Author Organization [facility] Address [address] [place] [address] Phone Care Team Providers Care Shake Packer Name Role Phone Dionicio Thomas MD Primary Care Provider [phone] Anton Emmanuel MD Unavailable Allergies Active Allergy [...] patient's age to complete this topic Insurance [facility] Care Teams Shake Packer Relationship Specialty Start Date End Date Dionicio Thomas MD [address] [place] [address] PCP - General Family Medicine 04/22/24 Anton Emmanuel MD [address] [address] Consulting Physician Urology 05/16/24
--- OUTSIDE RECORDS SUMMARY | 2025-07-09 04:28 | XMS_ITS | Encounter Summary ---
Author Organization [facility] Address [address] [place] [address] Care Team Providers Care Plate Sensitizer Name Role Phone Dionicio Thomas MD Primary Care Provider [phone] Encounter Details Date Type Department Care Team (Late st Contact Info) Description 03/01/2023 3LM Message Enc [facility] [place] [address] Misha Perla MD [address] [place] [address] Visit Follow Up Social History Tobacco Use [...] Sex Assigned at Female 12/24/2024 9:40 AM NEWS LIBRARY DIRECTOR Legal Sex Female 5:52 PM NEWS LIBRARY DIRECTOR Gender Identity Not on file Sexual [...] on filedocumented in this encounter Care Teams Plate Sensitizer Relationship Specialty Start Date End Date Dionicio Thomas MD [address] [place] [address] PCP - General FAMILY PRACTICE 05/22/20 documented as of this encounter
--- OUTSIDE RECORDS SUMMARY | 2025-07-09 04:28 | XMS_ITS | Encounter Summary ---
Author Organization [facility] Address [address] [place] [address] Care Team Providers Care Sponsorship Coordinator Name Role Phone Dionicio Thomas MD Primary Care Provider Encounter Details Date Type Department Care Team (Late st Contact Info) Description 02/20/2025 [employer] Message Enc [facility] [address] [address] [address] [place] [address] [place] [address] Visit Follow Up Social History Tobacco [...] Sex Assigned at Female 12/24/2024 9:40 AM RN [facility] Legal Sex Female 5:52 PM RN [facility] Gender Identity Not on file Sexual Orientation Not on file documented as of this encounter Plan of Treatment Not on file documented as of this encounter Visit Diagnoses Not on filedocumented in this encounter Care Teams Sponsorship Coordinator Relationship Specialty Start Date End Date Dionicio Thomas MD [address] [facility] [place] [address] PCP - General FAMILY PRACTICE 05/22/20 documented as of this encounter
--- OUTSIDE RECORDS SUMMARY | 2025-07-09 04:28 | XMS_ITS | Clinical Summary ---
Author Organization [facility] [employer] Address [address] [place] [address] Care Team Providers Care Document Control Coordinator Name Role Phone Dionicio Thomas MD Primary Care Provider Source Comments [facility] [employer],non-owned Affiliates and Associated Physician Practices is amultiple site organization consisting of ambulatory clinics and hospital sitesin [place], [place], [place] and [place]. This disclosure is being madepursuant to the Care Everywhere program and may not contain all information available regarding this patient. Last updated 18.How do you roll? [employer] Allergies Active Allergy Reactions Criticality Noted Date [...] - 06/05/2025 11:59 PM CDT Hospital Encounter [facility] [address] [place] [address] Oneil Marte MD Shelton, Earl Pérez MD [...] Info) Description 07/17/2025 4:30 PM CDT Appointment [facility] [address] [place] [address] Health Maintenance Due Date Last Done [...] on how to reach the clinic or warehouse distribution specialist physician at anytime for questions or complaints., Estimated blood loss during procedure 0 ml DOS 06/05/25 Earl Baker MD DIAGNOSTIC IMAGING ORDERA BLES Final Result * (ABNORMAL) COMPREHENSIVE METABOLIC PANEL (08/20/2016 1:34 PM CDT) Pathologist [facility] Glucose 104 74 - 106 mg/dL 08/20/2016 2:[facility] Sodium 137 136 - 145 mmol/L 08/20/2016 2:04 PM [facility] Potassium 3.4(L) 3.5 - 5.1 mmol/L 08/20/2016 2:04 PM [facility] Chloride 105 98 - 107 mmol/L 08/20/2016 2:04 PM [facility] CO2 25 22 - 31 mmol/L 08/20/2016 2:04 [facility] Calcium 8.5 8.5 - 10.1 mg/dL 08/20/2016 2:04 PM [facility] Anion Gap 7 5 - 20 mmol/L 08/20/2016 2:04 PM [facility] BUN 8 7 - 21 mg/dL 08/20/2016 2:04 PM [facility] Creatinine 0.84 0.50 - 1.30 mg/dL 08/20/2016 2:04 PM [facility] Alkaline Phosphatase 63 38 - 126 U/L 08/20/2016 2:04 PM [facility] ALT 17 13 - 61 U/L 08/20/2016 2:04 PM [facility] AST 12 5 - 40 U/L 08/20/2016 2:04 PM [facility] Protein Total 7.8 6.4 - 8.2 gm/dL 08/20/2016 2:04 PM [facility] Albumin 4.1 3.4 - 5.0 gm/dL 08/20/2016 2:04 PM [facility] Bilirubin Total 0.5 0.2 - 1.0 mg/dL 08/20/2016 2:04 PM [facility] eGFR by MDRD >60 >60 mL/min/1.7 3m2 08/20/2016 2:04 PM CDT [facility] eGFR by MDRD >60 >60 mL/min/1.7 3m2 08/20/2016 2:04 PM CDT [facility] Blood BLOOD SPECIMEN / Unknown 08/20/2016 1:34 PM CDT 08/20/2016 1:38 PM CDT Bee Alexandre CAMBERING MACHINE OPERATOR-PERSONNEL RECRUITER LAB - CHEMISTRY ORDERABLES Final Result [facility] [address] [place] [address] from Last 3 Months or Most Recently Relevant to Health Maintenance Insurance [employer] Care Teams Document Control Coordinator Relationship Specialty Start Date End Date Dionicio Thomas MD [address] [place] [address] [place] [address] PCP - General Family Medicine 07/22/21
--- OUTSIDE RECORDS SUMMARY | 2025-07-09 04:28 | XMS_ITS | Encounter Summary ---
Author Organization [facility] Address [address] [place] [address] Care Team Providers Care Mixing Pan Tender Name Role Phone Dionicio Thomas MD Primary Care Provider Encounter Details Date Type Department Care Team (Late st Contact Info) Description 10/03/2024 [employer] Message Enc [facility] [address] [address] [address] [place] [address] [place] [address] Visit Follow Up Social History Tobacco [...] Sex Assigned at Female 12/24/2024 9:40 AM PLANTING MACHINE CREWMAN Legal Sex Female 5:52 PM PLANTING MACHINE CREWMAN Gender Identity Not on file Sexual Orientation Not on file documented as of this encounter Plan of Treatment Not on file documented as of this encounter Visit Diagnoses Not on filedocumented in this encounter Care Teams Mixing Pan Tender Relationship Specialty Start Date End Date Dionicio Thomas MD [address] [place] [phone] PCP - General FAMILY PRACTICE 05/22/20 documented as of this encounter
--- OUTSIDE RECORDS SUMMARY | 2025-07-09 04:28 | XMS_ITS | Encounter Summary ---
Author Organization [facility] Address [facility] [place] [address] Care Team Providers Care Drum Filler Name Role Phone None, Provider Primary Care Provider Unavaila ble Obi Ware MD Primary Care Provider [phone] Dionicio Thomas MD Primary Care Provider Encounter Details Date Type Department Care Team (Late st Contact Info) Description 05/05/2019 Abstract [facility] CONVERSION [address] [place], [place] [id number] , Generic Conversion, Social History Tobacco Use Types Packs/Day Years Used Date Smoking Tobacco: Never Assessed Comments Unknown Sex and Gender Information Value Date Recorded Sex Assigned at Female 12/24/2024 9:40 AM AGRONOMY TECHNICIAN Legal Sex Female 5:52 PM AGRONOMY TECHNICIAN Gender Identity Not on file Sexual Orientation Not on file documented as of this encounter Plan of Treatment Not on file documented as of this encounter Visit Diagnoses Not on filedocumented in this encounter Care Teams Drum Filler Relationship Specialty Start Date End Date None, Provider, PCP - General 05/14/19 07/26/19 Obi Ware MD PCP - General FAMILY PRACTICE 07/27/19 05/21/20 Dionicio Thomas MD [address] [place] [address] PCP - General FAMILY PRACTICE 05/22/20 documented as of this encounter
--- OUTSIDE RECORDS SUMMARY | 2025-07-09 04:28 | XMS_ITS | Clinical Summary ---
Author Organization [facility] Address [facility] [place] [address] Care Team Providers Care Supervisor Ticket Sales Name Role Phone Dionicio Thomas MD Primary [...] Sex Assigned at Female 12/24/2024 9:40 AM SUPERVISOR TWISTING DEPARTMENT Legal Sex Female 5:52 PM SUPERVISOR TWISTING DEPARTMENT Gender Identity Not on file Sexual Orientation Not on file Last Filed Vital Signs Vital Sign Reading Time Taken Comments Blood Pressure 120/80 11/24/2024 6:50 AM SUPERVISOR TWISTING DEPARTMENT Pulse 108 11/24/2024 3:53 AM SUPERVISOR TWISTING DEPARTMENT Temperature 36.9 C (98.5 F) 11/24/2024 3:53 AM SUPERVISOR TWISTING DEPARTMENT Respiratory Rate 17 11/24/2024 3:53 AM SUPERVISOR TWISTING DEPARTMENT Oxygen Saturation 97% 11/24/2024 6:50 AM SUPERVISOR TWISTING DEPARTMENT Inhaled Oxygen Concentration - - Weight 65.8 [...] ROBERTA KEREN DIGI Routine 10/26/2024 10:49 AM SUPERVISOR TWISTING DEPARTMENT Visit for screening mammogram from Last 3 Months or Most Recently Relevant to Health Maintenance Results * MG SCREENING W ROBERTA KEREN DIGI (10/26/2024 10:49 AM SUPERVISOR TWISTING DEPARTMENT) Anatomical Region Laterality Modality Breast Bilateral Mammography 10/26/2024 11:2 0 AM SUPERVISOR TWISTING DEPARTMENT Impressions 10/26/2024 11:20 AM SUPERVISOR TWISTING DEPARTMENT IMPRESSION: No suspicious change since 10/17/2023. Recommendation: 1: Routine Screening Bilateral in 1 Year Assessment: ACR BI-RADS 2 - BENIGN FINDING(S) Ordered By: TANI CUMMINS Interpreted By: Nehemiah Bonilla MD, 10/26/2024 11:20 AM Narrative 10/26/2024 11:20 AM SUPERVISOR TWISTING DEPARTMENT [address] [place] [address] Examination: Digital screening mammogram with CAD. Clinical [...] Most Recently Relevant to Health Maintenance Insurance [facility] Care Teams Supervisor Ticket Sales Relationship Specialty Start Date End Date Dionicio Thomas MD [address] [place] [address] PCP - General FAMILY PRACTICE 05/22/20
[2025-07-09 04:34] LABS: Alanine Aminotransferase 14 U/L (6-35); Albumin Level 4.4 g/dL (3.5-5.1); Alkaline Phosphatase 52 U/L (38-126); Anion Gap 8 mmol/L (4-12); Aspartate Amino Transferase 23 U/L (14-36); Bilirubin,Total 1.0 mg/dL (0.2-1.3); Blood Urea Nitrogen 11 mg/dL (7-17); Calcium 9.0 mg/dL (8.4-10.2); Carbon Dioxide 24 mmol/L (22-30); Chloride 106 mmol/L (98-107); Estimated Glomerular Filt Rate > 60; Glucose 90 mg/dL (65-110); Lipase 71 U/L (23-300); Potassium 3.7 mmol/L (3.4-5.0); Sodium 138 mmol/L (137-145); Total Protein 7.1 g/dL (6.3-8.2)
[2025-07-09 04:49] LABS: Hematocrit 42.6 % (37.0-47.0); Hemoglobin 14.2 g/dL (12.0-15.0); Immature Granulocyte Percent A 0.1 % (0-0.5); Immature Platelet Fraction Pct 15.9 % (0.9-11.2); Lymphocytes Absolute Auto 1.54 K/mm3 (0.9-3.2); Mean Corpuscular HGB Conc 33.3 g/dl (32-36); Mean Corpuscular Hemoglobin 30.3 pg (26-34); Mean Corpuscular Volume 91.0 fl (80-100); Nucleated Red Blood Cells Absolute Auto 0.000 K/mm3 (0.0-0.012); Nucleated Red Blood Cells Perc 0.0 % (0.0-0.2); Platelet Count Result 182 k/mm3 (150-375); Red Blood Count 4.68 M/mm3 (4.2-5.4); White Blood Count 6.9 K/mm3 (4.5-10.0)
[2025-07-09 05:13] LABS: Add Urine Microscopic? YES; Appearance Urine Clear (Clear); Glucose Urine UA Negative (Negative); Leukocyte Esterase Ur 1+ LEU/UL (Negative); Nitrate Urine Negative (Negative); Non Pathogenic Casts 0-2; Specific Grav Ur 1.016 (1.001-1.035)
[2025-07-09 07:14] VITALS: BP 108/74; PULSE 70; RESP 16; O2SAT 98
== END 2025-07-09 07:16 | disposition home or self-care (01) ==
PROVIDERS: Emergency Provider Student in an Organized Health Care Education/Training Program; PCP Family Medicine
DX: N99.820 Postprocedural hemorrhage of a genitourinary system organ or structure following a genitourinary system procedure (principal); Z87.891 Personal history of nicotine dependence
CPT/HCPCS: 36415; 72193; 80053; 81001; 83690; 85025; 85055; 87086; 99284; Q9967